=== PATIENT | male | born 1950 | race Caucasian/White ===

== ENCOUNTER 2022-10-16 07:43 | Emergency (ER) | payer MEDICARE, MEDICAID, SELFPAY ==
[2022-10-16] VITALS (12 sets, daily range): BP systolic 205–241; BP diastolic 105–124; PULSE 95–107; RESP 14–22; TEMP 37; O2SAT 97–99; BMI 21.6
--- NOTE | 2022-10-16 08:20 | ED_ITS ---
HPI - General Adult General Chief complaint: Hypertension Stated complaint: SOB; HTN Time Seen by Provider: 10/16/22 08:20 Source: patient Mode of arrival: EMS Limitations: no limitations History of Present Illness HPI narrative: This is a 72-year-old male with history of hypertension and prior polysubstance abuse who has been sober for 20-30 years. Patient was at [facility], patient states today he got short of breath walking up the stairs at the clinic. Patient states that he usually takes a stop care home up the steps but did not he was trying to push himself. He is got very short of breath. He denies any chest pain or pressure, no lightheadedness, no passing out. No nausea no vomiting, no diaphoresis. He is had some constipation recently but having bowel movements. No new swelling in his extremities. His blood pressure is quite high he notes that it was quite elevated for some time. He stopped his lisinopril 2 years ago because he does not like to take medication regularly. He states he checks his blood pressure regularly and 200 systolic or higher is not atypical for him. He does not take any other prescriptions. He is allergic to bees, no known drug allergies. Patient states he is had prior surgical repair for femur fracture and fracture in his arms. Denies any other surgeries. Former smoker, rare alcohol, patient states in the past he has used many different illicit substances but quit about 20 or 30 years ago. Related Data Previous Rx's Medication Instructions Recorded furosemide 40 mg tablet (Lasix) 40 mg PO DAILY #7 tabs 10/16/22 lisinopril 5 mg tablet 5 mg PO DAILY #30 tabs 10/16/22 Review of Systems Review of Systems ROS Unobtainable: All systems reviewed & are unremarkable except as noted in HPI and below Patient History Social History Smoking Status: Former smoker Smoking Status: Former smoker alcohol intake frequency: other Substance Use Type: does not use Exam Narrative Exam Narrative: GEN: well nourished, well appearing male, alert and oriented x 3, patient appears to be in mild distress. HEENT: Atraumatic, pupils are equal round reactive to light, extraocular movements are intact, nares are clear, there is no conjunctival pallor. Throat is clear without any exudates, erythema, tonsillar enlargement or uvular deviation HEART: Regular rate and rhythm without murmur, clicks, rubs. Pulses are equal in upper and lower extremities LUNGS:Lungs clear to auscultation, no wheezes, rales, crackles, chest moves symmetrically, no tachypnea or accessory muscle use, no swelling bilateral lower extremities ABD:bowel sounds normal, soft, non-tender, no guarding, rebound, rigidity, no masses noted, no hepatosplenomegaly :No CVA tenderness MSCL: Non-tender, no muscle atrophy, full range of motion, normal gait NEURO:CN 2-12 intact, sensation normal. SKIN: No rash, erythema or other skin changes Initial Vital Signs Initial Vital Signs: Vital Signs Pulse Rate 105 H 10/16/22 07:48 Respiratory Rate 15 10/16/22 07:48 Pulse Oximetry 98 10/16/22 07:48 Course Orders Ordered: ED Orders 10/16/22 08:12 Complete Blood Count AUTO DIFF Stat Comprehensive Metabolic Panel Stat Lipase Stat NT-proBNP (BNP-Adult 18+) Stat PTT Partial Thromboplastin Vinicius Stat Prothrombin Time INR Stat Troponin & CK Cardiac Panel Stat 10/16/22 08:43 XR chest 1V Stat 10/16/22 08:47 EKG-12 Lead Stat Discontinued Medications Furosemide (Furosemide 40 Mg/4 Ml Vial) 40 mg IV NOW ONE Stop: 10/16/22 09:31 Last Admin: 10/16/22 09:35 Dose: 40 mg Documented By: LEONIE Vital Signs Vital signs: Vital Signs - 8 hr 10/16/22 07:54 10/16/22 07:48 10/16/22 08:00 Temperature 98.6 F Pulse Rate 107 H 105 H Respiratory Rate 20 15 Blood Pressure 241/123 H 208/109 H Pulse Oximetry 97 98 Oxygen Delivery Method Room Air 10/16/22 08:00 10/16/22 08:15 10/16/22 08:15 Temperature Pulse Rate 104 H 103 H Respiratory Rate 14 15 Blood Pressure 205/106 H Pulse Oximetry 99 99 Oxygen Delivery Method 10/16/22 08:30 10/16/22 08:31 10/16/22 08:31 Temperature Pulse Rate 101 H 100 H Respiratory Rate 22 18 Blood Pressure 220/124 H Pulse Oximetry 99 99 Oxygen Delivery Method 10/16/22 08:45 10/16/22 08:45 10/16/22 09:00 Temperature Pulse Rate 98 H Respiratory Rate 17 Blood Pressure 218/105 H 217/109 H Pulse Oximetry 98 Oxygen Delivery Method 10/16/22 09:00 10/16/22 09:16 10/16/22 09:16 Temperature Pulse Rate 95 H 100 H Respiratory Rate 18 17 Blood Pressure 224/120 H Pulse Oximetry 98 99 Oxygen Delivery Method 10/16/22 09:30 10/16/22 09:30 10/16/22 09:45 Temperature Pulse Rate 98 H Respiratory Rate 17 Blood Pressure 224/112 H 231/115 H Pulse Oximetry 98 Oxygen Delivery Method 10/16/22 09:45 10/16/22 10:00 10/16/22 10:00 Temperature Pulse Rate 106 H 97 H Respiratory Rate 17 21 Blood Pressure 224/106 H Pulse Oximetry 98 98 Oxygen Delivery Method Medical Decision Making Lab Data 10/16/22 08:12 10/16/22 08:12 Labs: Lab Results 10/16/22 10/16/22 10/16/22 Range/Units 08:12 08:12 08:12 WBC 10.9 (4.5-11.0) X10^3/uL RBC 5.17 (4.5-5.9) X10^6/uL Hgb 13.6 (13.5-17.5) g/dL Hct 39.7 L (41-53) % MCV 76.8 L (80-100) fL MCH 26.3 (26-34) PG MCHC 34.3 (30-36) % RDW 13.8 (11.6-14.8) % Plt Count 210 (150-400) X10^3/uL Neut % (Auto) 84.3 H (50-75) % Lymph % (Auto) 9.5 L (25-40) % Clinch % (Auto) 5.8 (3-14) % Eos % (Auto) 0.1 L (2-4) % Baso % (Auto) 0.3 (0-2) % Neut # (Auto) 9200 H (8820-7604) /uL Lymph # (Auto) 1000 L (2500-1396) /uL Clinch # (Auto) 600 (0-900) /uL Eos # (Auto) 0 (0-450) /uL Baso # (Auto) 0 (0-100) /uL PT 15.1 H (10.1-12.7) SECONDS INR 1.3 (0.9-1.3) APTT 30 (26-36) SECONDS Sodium 139 (137-145) mmol/L Potassium 4.1 (3.4-5.1) mmol/L Chloride 103 (98-107) mmol/L Carbon Dioxide 28 (22-32) mmol/L BUN 15 (9-20) mg/dL Creatinine 0.63 L (0.66-1.25) mg/dL Estimated GFR > 60 (>60) mL/min BUN/Creatinine Ratio 23.8 H (6-22) Glucose 112 H (80-110) mg/dL Calcium 10.3 H (8.4-10.2) mg/dL Total Bilirubin 0.7 (0.2-1.3) mg/dL AST 58 (17-59) IU/L ALT 28 (<50) IU/L Alkaline Phosphatase 154 H (38-126) U/L Total Creatine Kinase 21 L (55-170) U/L CK-MB (CK-2) TNP CK-MB (CK-2) Rel Index TNP Troponin I 0.016 (0.01-0.034) ng/mL NT-Pro-B Natriuret Pep 1870 H (<125) pg/mL Total Protein 6.9 (6.3-8.2) g/dL Albumin 3.5 (3.5-5.0) g/dL Globulin 3.4 (1.7-4.1) g/dL Albumin/Globulin Ratio 1.0 (1.0-2.8) Lipase 134 (23-300) U/L Imaging Data Chest x-ray: Radiologist's Impression: [address] [address] XRay Report Signed Patient: Alistair Arteaga MR#: [id number] : 1950 Acct:[id number] Age/Sex: 72 / M Date of Service: 10/16/22 Loc: ED Accession Number: [id number] ?? Procedure: XR chest 1V Ordering Provider: Suzanne Sanon D.O. PROCEDURE:? XR CHEST 1V ? INDICATIONS:? shortness of breath ? TECHNIQUE:? One view of the chest was acquired.? ? COMPARISON:? None. ? FINDINGS:? ? Surgical changes and devices:? None.? ? Lungs and pleura:? Lungs are clear.? No pleural effusions or pneumothorax.? ? Mediastinum:? Mediastinal contours appear normal.? Heart size is normal.? ? Bones and chest wall:? No suspicious bony lesions.? Overlying soft tissues appear unremarkable.? ? IMPRESSION:? No acute cardiopulmonary pathology. ? ? Dictated by: Darin Villela M.D. on 10/16/2022 at 8:56 ? ? Approved by: Darin Villela M.D. on 10/16/2022 at 8:56?? ECG Data Attestation: I personally reviewed and interpreted this ECG as follows: Prior ECG tracings: not available for review Interpretation: Sinus rhythm with sinus arrhythmia rate of 98 MN 132 QRS of 90 QTC of 428. No acute ST elevation or depression noted. No priors for comparison. MDM Narrative Medical decision making narrative: This is a 72-year-old male with significant hypertension, patient states this is his baseline he has been off his lisinopril for at least 2 years he states used to take a low-dose and was controlled without medication. Patient has had shortness of breath he describes today quite a bit with exertion upstairs but has had some mild symptoms recently. EKG shows sinus rhythm no acute ST changes he is not had any chest pain with symptoms but considering CHF, ACS, atypical angina, infection as potential causes. CBC, CMP, troponin, BNP shows hematocrit of 39, normal platelets normal white count, coags negative, creatinine is negative with normal electrolytes, glucose 110, calcium 10.3 P ox 154, troponins negative at 0.016 with a BNP of 18 70 and normal LFT. Chest x-ray shows no acute process. Patient and I discussed findings, like to do repeat troponin 2 hours negative patient does not wish to stay in the hospital for stress testing. But he elects not to have the 2nd troponin. We discussed that he could have ACS or be having a heart attack he understands this. We also discussed his blood pressure is quite elevated. Asked to restart his lisinopril he states he used to take 5 mg daily and stopped about 2 years ago. We will send a prescription for this short course of Lasix, patient does state he has a primary care physician that he can follow-up with, Dr. Sweet. Patient states he is feeling improved after Lasix here in the department. Discharge Plan Departure Patient Disposition: Home Clinical Impression: Hypertension, CHF (congestive heart failure) Instructions: DI for Heart Failure, DI for High Blood Pressure Activity Restrictions/Additional Instructions: It is recommended that you stay for additional workup, you have elected to return home and we have not completely ruled out things like heart attacks. Please follow-up with your physician to continue blood pressure medication, check your blood pressure and discussed with them about getting a stress test. Take lisinopril once daily. Take Lasix once daily until gone. Prescription sent to [facility] in [place] Please return for new or worsening chest pain, shortness of breath, lightheadedness or passing out, new swelling of your extremities or other new or concerning changes Prescriptions: New lisinopril 5 mg tablet 5 mg PO DAILY Qty: 30 0RF furosemide [Lasix] 40 mg tablet 40 mg PO DAILY Qty: 7 0RF Referrals: Miscellaneous,Doctor, [Primary Care Provider] - Stand Alone Forms: Patient Portal/API
--- NOTE | 2022-10-16 08:43 | DI.RAD.S_ITS ---
PROCEDURE: XR CHEST 1V INDICATIONS: shortness of breath TECHNIQUE: One view of the chest was acquired. COMPARISON: None. FINDINGS: Surgical changes and devices: None. Lungs and pleura: Lungs are clear. No pleural effusions or pneumothorax. Mediastinum: Mediastinal contours appear normal. Heart size is normal. Bones and chest wall: No suspicious bony lesions. Overlying soft tissues appear unremarkable. IMPRESSION: No acute cardiopulmonary pathology. Dictated by: Darin Villela M.D. on 10/16/2022 at 8:56 Approved by: Darin Villela M.D. on 10/16/2022 at 8:56
[2022-10-16 08:55] LABS: Add Manual Diff / Slide Review NO; Basophils Absolute Auto 0 /uL (0-100); Basophils Percent Auto 0.3 % (0-2); Eosinophils Absolute Auto 0 /uL (0-450); Eosinophils Percent Auto 0.1 % (2-4); Hematocrit 39.7 % (41-53); Hemoglobin 13.6 g/dL (13.5-17.5); INR 1.3 (0.9-1.3); Lymphocytes Absolute Auto 1000 /uL (1100-4500); Lymphocytes Percent Auto 9.5 % (25-40); Mean Corpuscular HGB Conc 34.3 % (30-36); Mean Corpuscular Hemoglobin 26.3 PG (26-34); Mean Corpuscular Volume 76.8 fL (80-100); Monocytes Absolute Auto 600 /uL (0-900); Monocytes Percent Auto 5.8 % (3-14); Neutrophils Absolute Auto 9200 /uL (1500-7000); Neutrophils Percent Auto 84.3 % (50-75); Platelet Count 210 X10^3/uL (150-400); Prothrombin Time 15.1 SECONDS (10.1-12.7); Red Blood Cell Count 5.17 X10^6/uL (4.5-5.9); Red Cell Distribution Width 13.8 % (11.6-14.8); White Blood Cell Count 10.9 X10^3/uL (4.5-11.0)
[2022-10-16 08:58] LABS: PTT Partial Thromboplastin Tim 30 SECONDS (26-36)
[2022-10-16 09:00] LABS: Alanine Aminotransferase 28 IU/L (<50); Albumin 3.5 g/dL (3.5-5.0); Alkaline Phosphatase 154 U/L (38-126); Aspartate Aminotransferase 58 IU/L (17-59); BUN Creatinine Ratio 23.8 (6-22); Bilirubin Total 0.7 mg/dL (0.2-1.3); Blood Urea Nitrogen 15 mg/dL (9-20); Calcium 10.3 mg/dL (8.4-10.2); Carbon Dioxide 28 mmol/L (22-32); Chloride 103 mmol/L (98-107); Creatine Kinase 21 U/L (55-170); Estimated Glomerular Filt Rate > 60 mL/min (>60); Globulin 3.4 g/dL (1.7-4.1); Glucose 112 mg/dL (80-110); HEMOLYSIS < 15 (0-50); Lipase 134 U/L (23-300); Potassium 4.1 mmol/L (3.4-5.1); Sodium 139 mmol/L (137-145); Total Protein 6.9 g/dL (6.3-8.2)
[2022-10-16 09:11] LABS: NT-proBNP (BNP-Adult 18+) 1870 pg/mL (<125); Troponin I 0.016 ng/mL (0.01-0.034)
[2022-10-16] MEDS: FUROSEMIDE 40 MG/4 ML VIAL IV (09:35)
== END 2022-10-16 10:11 | disposition home or self-care (01) ==
PROVIDERS: Emergency Provider Emergency Medicine
DX: I10 Essential (primary) hypertension (principal); I50.9 Heart failure, unspecified; R06.02 Shortness of breath
CPT/HCPCS: 36415; 71045; 80053; 82550; 83690; 83880; 84484; 85025; 85610; 85730; 93005; 96374; 99284; J1940

== ENCOUNTER 2022-11-11 11:29 | Emergency (ER) | payer MEDICARE, MEDICAID, SELFPAY ==
[2022-11-11] VITALS (10 sets, daily range): BP systolic 141–175; BP diastolic 78–87; PULSE 98–109; RESP 11–26; TEMP 36.7; O2SAT 92–99; BMI 20.3
--- NOTE | 2022-11-11 12:16 | DI.RAD.S_ITS ---
PROCEDURE: XR CHEST 1V INDICATIONS: recheck, chf in October TECHNIQUE: One view of the chest was acquired. COMPARISON: [facility], CR, XR CHEST 1V, 10/16/2022, 8:44. FINDINGS: Surgical changes and devices: None. Lungs and pleura: Low lung volumes. There are horizontal bibasilar opacities, more prominent compared to the prior study, probably accentuated by low lung volumes. There is mid lung interstitial thickening bilaterally. No pneumothorax. Pleural effusions cannot be excluded given low lung volumes. Mediastinum: No acute central venous congestion. Stable mediastinal contour. The heart is partially imaged. Bones and chest wall: No suspicious bony lesions. Overlying soft tissues appear unremarkable. IMPRESSION: 1. Mid and lower lung bilateral interstitial thickening and increased bibasilar opacities, atelectasis or edema. Second image with improved inflation and lateral view may be useful to exclude true infiltrates. Dictated by: Angella Coello M.D. on 11/11/2022 at 12:44 Approved by: Angella Coello M.D. on 11/11/2022 at 12:45
[2022-11-11 12:50] LABS: Add Manual Diff / Slide Review NO; Basophils Absolute Auto 100 /uL (0-100); Basophils Percent Auto 0.5 % (0-2); Eosinophils Absolute Auto 0 /uL (0-450); Eosinophils Percent Auto 0.1 % (2-4); Hemoglobin 13.2 g/dL (13.5-17.5); Lymphocytes Absolute Auto 1300 /uL (1100-4500); Lymphocytes Percent Auto 9.4 % (25-40); Mean Corpuscular HGB Conc 33.8 % (30-36); Mean Corpuscular Hemoglobin 25.9 PG (26-34); Mean Corpuscular Volume 76.6 fL (80-100); Monocytes Absolute Auto 800 /uL (0-900); Monocytes Percent Auto 5.8 % (3-14); Neutrophils Absolute Auto 12000 /uL (1500-7000); Neutrophils Percent Auto 84.2 % (50-75); Platelet Count 233 X10^3/uL (150-400); Red Blood Cell Count 5.09 X10^6/uL (4.5-5.9); Red Cell Distribution Width 15.2 % (11.6-14.8); White Blood Cell Count 14.2 X10^3/uL (4.5-11.0)
[2022-11-11 13:03] LABS: Alanine Aminotransferase 48 IU/L (<50); Albumin 3.3 g/dL (3.5-5.0); Alkaline Phosphatase 148 U/L (38-126); Aspartate Aminotransferase 73 IU/L (17-59); BUN Creatinine Ratio 23.8 (6-22); Bilirubin Total 0.9 mg/dL (0.2-1.3); Blood Urea Nitrogen 30 mg/dL (9-20); Calcium 10.4 mg/dL (8.4-10.2); Carbon Dioxide 28 mmol/L (22-32); Chloride 98 mmol/L (98-107); Creatine Kinase 24 U/L (55-170); Estimated Glomerular Filt Rate > 60 mL/min (>60); Globulin 3.3 g/dL (1.7-4.1); Glucose 132 mg/dL (80-110); HEMOLYSIS < 15 (0-50); Potassium 3.9 mmol/L (3.4-5.1); Sodium 135 mmol/L (137-145); Total Protein 6.6 g/dL (6.3-8.2)
[2022-11-11 13:14] LABS: NT-proBNP (BNP-Adult 18+) 3420 pg/mL (<125); Troponin I 0.047 ng/mL (0.01-0.034)
--- NOTE | 2022-11-11 14:10 | DI.RAD.S_ITS ---
PROCEDURE: XR CHEST 2V INDICATIONS: repeat for better view r/u edema vs. infection/infiltrate TECHNIQUE: 2 views of the chest were acquired. COMPARISON: [facility], CR, XR CHEST 2 VIEWS, 02/20/2022, 8:59. [facility], CR, XR CHEST 1V, 11/11/2022, 12:41. FINDINGS: Surgical changes and devices: None. Lungs and pleura: There are horizontal bibasilar opacity. Lateral view demonstrates small probably bilateral pleural effusions. There is minor platelike atelectasis or scar medially in the right lung base. Upper lungs are normally aerated. Mediastinum: Heart size is normal. No central vascular congestion. Normal aortic contour. Bones and chest wall: No suspicious bony abnormalities. Soft tissues appear unremarkable. IMPRESSION: 1. Bibasilar opacities and pleural effusions, new since 02/20/22 and probably infectious or inflammatory. Dictated by: Angella Coello M.D. on 11/11/2022 at 15:08 Approved by: Angella Coello M.D. on 11/11/2022 at 15:10
--- NOTE | 2022-11-11 14:17 | ED.RECABL ---
HPI - Recheck/Abnormal Lab/Rx General Chief Complaint: Recheck/Abnormal Lab/Rx Stated Complaint: follow up from 3weeks ago with [facility] Time Seen by Provider: 11/11/22 12:16 Mode of arrival: Wheelchair History of Present Illness HPI narrative: This is a 72-year-old male with history of hypertension, prior polysubstance abuse on methadone daily who represents with complaint of intermittent shortness of breath. Patient states and I saw him a month ago for some increasing exertional dyspnea. Patient states he did set up a follow up primary care, he is supposed to have some testing in about a month. He states he is still on his lisinopril they did decrease the Lasix that was prescribed but is still taking a lower dose daily. Patient states he is had occasional shortness of breath with exertion, he states it is not as bad as it was but happens occasionally particularly in the morning. He denies any chest pain or pressure. No syncope. Also described lot of constipation to the lateral laxative medications which improved. He denies any fevers, no cold cough or congestion. No nausea or vomiting. He does not appreciate increasing swelling of his extremities. Patient had no longstanding history of hypertension which had not been well treated. Patient states he came for rechecked today. States he is allergic to bees no known drug allergies. Had prior surgical care for femur fracture and fracture in his arms. Former smoker, rare alcohol, no recreational drug use for the past 20-30 years. Follows through did while at clinic for daily methadone. Patient and I had discussed hospitalization for cardiac opposite stress testing but he has a 15-year-old daughter and has not been able to spend the night secondary to needing to make arrangements to take care of his daughter. Related Data Previous Rx's Medication Instructions Recorded furosemide 40 mg tablet (Lasix) 40 mg PO DAILY #7 tabs 10/16/22 lisinopril 5 mg tablet 5 mg PO DAILY #30 tabs 10/16/22 metoprolol succinate 25 mg capsule 25 mg PO DAILY #30 ea 11/11/22 sprinkle, ext. release 24 hr Allergies Allergy/AdvReac Type Severity Reaction Status Date / Time No Known Drug Allergies Allergy Verified 11/11/22 11:44 Review of Systems Review of Systems ROS Unobtainable: All systems reviewed & are unremarkable except as noted in HPI and below Patient History Social History Smoking Status: Former smoker Smoking Status: Former smoker alcohol intake frequency: other Substance Use Type: does not use Exam Narrative Exam Narrative: GENERAL: Alert and oriented x three, well-appearing male in mild distress. HEENT: Head normocephalic, atraumatic, EOMI, pupils reactive, face symmetric, moist mucous membranes NECK: Supple, full range of motion CARDIOVASCULAR: Regular rate and rhythm without murmurs, rubs or gallops. Mild JVD. Swelling bilateral lower extremities. RESPIRATORY: Breath sounds equal bilaterally, no wheezes rales or rhonchi. No tachypnea accessory muscle use. Speaks in full sentences. ABDOMEN: Soft, nontender. Normoactive bowel sounds all 4 quadrants. No guarding or rebound, rigidity, no mass : No CVA tenderness EXTREMITIES: Normal range of motion, no clubbing or edema. Neurovascularly intact NEUROLOGICAL: Cranial nerves II through XII grossly intact. Moving all extremities SKIN: Warm, dry, no petechiae, no rashes or lesions. Initial Vital Signs Initial Vital Signs: Vital Signs Temperature 98.0 F 11/11/22 11:44 Pulse Rate 109 H 11/11/22 11:44 Respiratory Rate 16 11/11/22 11:44 Blood Pressure 141/78 H 11/11/22 11:44 Pulse Oximetry 98 11/11/22 11:44 Oxygen Delivery Method Room Air 11/11/22 11:44 Course Orders Ordered: ED Orders 11/11/22 12:16 Chest [XR chest 1V] Stat 11/11/22 12:22 CBC Auto Diff [Complete Blood Count AUTO DIFF] Stat Comprehensive Metabolic Panel Stat NT-proBNP (BNP-Adult 18+) Stat Troponin & CK Cardiac Panel Stat 11/11/22 12:34 EKG-12 Lead Stat 11/11/22 14:10 Chest [XR chest 2V] Stat 11/11/22 14:35 Trop I [Troponin I] Stat 11/11/22 14:59 EKG-12 Lead Stat Vital Signs Vital signs: Vital Signs - 8 hr 11/11/22 11:44 11/11/22 13:55 11/11/22 13:55 Temperature 98.0 F Pulse Rate 109 H 102 H Respiratory Rate 16 14 Blood Pressure 141/78 H 167/87 H Pulse Oximetry 98 99 Oxygen Delivery Method Room Air 11/11/22 14:00 11/11/22 14:00 11/11/22 14:30 Temperature Pulse Rate 101 H 102 H Respiratory Rate 14 16 Blood Pressure 158/79 H Pulse Oximetry 92 Oxygen Delivery Method 11/11/22 15:00 11/11/22 15:29 11/11/22 15:29 Temperature Pulse Rate 101 H 98 H Respiratory Rate 26 H 17 Blood Pressure 147/81 H Pulse Oximetry Oxygen Delivery Method 11/11/22 15:30 11/11/22 15:30 11/11/22 16:00 Temperature Pulse Rate 99 H Respiratory Rate Blood Pressure 159/83 H 165/81 H Pulse Oximetry Oxygen Delivery Method 11/11/22 16:00 11/11/22 16:30 11/11/22 16:30 Temperature Pulse Rate 101 H 101 H Respiratory Rate 11 L 14 Blood Pressure 175/83 H Pulse Oximetry Oxygen Delivery Method 11/11/22 16:45 Temperature Pulse Rate 104 H Respiratory Rate 21 Blood Pressure Pulse Oximetry Oxygen Delivery Method MDM - Recheck/Abnormal Lab/Rx Lab Data 11/11/22 12:22 11/11/22 12:22 Labs: Lab Results 11/11/22 11/11/22 11/11/22 Range/Units 12:22 12:22 14:35 WBC 14.2 H (4.5-11.0) X10^3/uL RBC 5.09 (4.5-5.9) X10^6/uL Hgb 13.2 L (13.5-17.5) g/dL Hct 39.0 L (41-53) % MCV 76.6 L (80-100) fL MCH 25.9 L (26-34) PG MCHC 33.8 (30-36) % RDW 15.2 H (11.6-14.8) % Plt Count 233 (150-400) X10^3/uL Neut % (Auto) 84.2 H (50-75) % Lymph % (Auto) 9.4 L (25-40) % Dauphin % (Auto) 5.8 (3-14) % Eos % (Auto) 0.1 L (2-4) % Baso % (Auto) 0.5 (0-2) % Neut # (Auto) 25836 H (3170-0982) /uL Lymph # (Auto) 1300 (9412-8707) /uL [place]hin # (Auto) 800 (0-900) /uL Eos # (Auto) 0 (0-450) /uL Baso # (Auto) 100 (0-100) /uL Sodium 135 L (137-145) mmol/L Potassium 3.9 (3.4-5.1) mmol/L Chloride 98 (98-107) mmol/L Carbon Dioxide 28 (22-32) mmol/L BUN 30 H (9-20) mg/dL Creatinine 1.26 H (0.66-1.25) mg/dL Estimated GFR > 60 (>60) mL/min BUN/Creatinine Ratio 23.8 H (6-22) Glucose 132 H (80-110) mg/dL Calcium 10.4 H (8.4-10.2) mg/dL Total Bilirubin 0.9 (0.2-1.3) mg/dL AST 73 H (17-59) IU/L ALT 48 (<50) IU/L Alkaline Phosphatase 148 H (38-126) U/L Total Creatine Kinase 24 L (55-170) U/L Troponin I 0.047 H 0.042 H (0.01-0.034) ng/mL NT-Pro-B Natriuret Pep 3420 H (<125) pg/mL Total Protein 6.6 (6.3-8.2) g/dL Albumin 3.3 L (3.5-5.0) g/dL Globulin 3.3 (1.7-4.1) g/dL Albumin/Globulin Ratio 1.0 (1.0-2.8) Imaging Data Chest x-ray: Radiologist's Impression: Alistair Arteaga??72??M??1950 ? Allergy/Adv: No Known Drug Allergies Close Chest X-Ray (Signed) Angella Coello - 11/11/22 Chest X-Ray (Signed) Darin Villela - 10/16/22 Launch?[address] [address] XRay Report Signed Patient: Alistair Arteaga MR#: [id number] : 1950 Acct:[id number] Age/Sex: 72 / M Date of Service: 11/11/22 Loc: ED Accession Number: [id number] ?? Procedure: XR chest 1V Ordering Provider: Suzanne Sanon D.O. PROCEDURE:? XR CHEST 1V ? INDICATIONS:? recheck, chf in October ? TECHNIQUE:? One view of the chest was acquired.? ? COMPARISON:? [facility], CR, XR CHEST 1V, 10/16/2022, 8:44. ? FINDINGS:? ? Surgical changes and devices:? None.? ? Lungs and pleura:? Low lung volumes.? There are horizontal bibasilar opacities, more prominent compared to the prior study, probably accentuated by low lung volumes.? There is mid lung interstitial thickening bilaterally.? No pneumothorax.? Pleural effusions cannot be excluded given low lung volumes. ? Mediastinum:? No acute central venous congestion.? Stable mediastinal contour.? The heart is partially imaged. ? Bones and chest wall:? No suspicious bony lesions.? Overlying soft tissues appear unremarkable.? ? IMPRESSION:? ? 1. Mid and lower lung bilateral interstitial thickening and increased bibasilar opacities, atelectasis or edema.? Second image with improved inflation and lateral view may be useful to exclude true infiltrates.? ? ? Dictated by: Angella Coello M.D. on 11/11/2022 at 12:44 ? ? Approved by: Angella Coello M.D. on 11/11/2022 at 12:45?? 2vchest: Radiologist's Impression: Alistair Arteaga??72??M??1950 ? Allergy/Adv: No Known Drug Allergies Close Chest X-Ray (Signed) Angella Coello - 11/11/22 Chest X-Ray (Signed) Angella Coello - 11/11/22 Chest X-Ray (Signed) Darin Villela - 10/16/22 Launch?Image [address] [address] XRay Report Signed Patient: Alistair Arteaga MR#: [id number] : 1950 Acct:[id number] Age/Sex: 72 / M Date of Service: 11/11/22 Loc: ED Accession Number: [id number] ?? Procedure: XR chest 2V Ordering Provider: Suzanne Sanon D.O. PROCEDURE:? XR CHEST 2V ? INDICATIONS:? repeat for better view r/u edema vs. infection/infiltrate ? TECHNIQUE:? 2 views of the chest were acquired.? ? COMPARISON:? [facility], CR, XR CHEST 2 VIEWS, 02/20/2022, 8:59.? [facility], CR, XR CHEST 1V, 11/11/2022, 12:41. ? FINDINGS:? ? Surgical changes and devices:? None.? ? Lungs and pleura:? There are horizontal bibasilar opacity.? Lateral view demonstrates small probably bilateral pleural effusions.? There is minor platelike atelectasis or scar medially in the right lung base.? Upper lungs are normally aerated. ? Mediastinum:? Heart size is normal.? No central vascular congestion.? Normal aortic contour. ? Bones and chest wall:? No suspicious bony abnormalities.? Soft tissues appear unremarkable.? ? IMPRESSION:? ? 1. Bibasilar opacities and pleural effusions, new since 02/20/22 and probably infectious or inflammatory.? ? ? Dictated by: Angella Coello M.D. on 11/11/2022 at 15:08 ? ? Approved by: Angella Coello M.D. on 11/11/2022 at 15:10?? ECG Data Attestation: I personally reviewed and interpreted this ECG as follows: Interpretation: Sinus tachycardia rate of 112 AK 158 QRS is 96 [address] No acute [address] elevation, patient has some [id number] depression that is not present throughout in lateral leads. No elevation. Patient has comparison from 10/16/2022 which otherwise appears similar EKG 2. Sinus tachycardia rate of 101 AK 161 QRS of 98 QTC 427. Nonspecific change. No other acute changes appreciated. No new elevation depression noted. MDM Narrative Medical decision making narrative: This is a very pleasant 72-year-old male who seen once before by myself with history of longstanding hypertension that was untreated for some time patient has restarted blood pressure medication his blood pressure is elevated but improved today compared to priors. He has sinus rhythm no acute ST changes but is noted to have indeterminate troponin which is elevated from last visit repeat is 0.042 slightly down from initial, BNP is elevated at 3400 today. Creatinine is also bumped up at 1.26 with a BUN of 30. Electrolytes otherwise appropriate, coags negative, white count is 14. Patient was noted to have a BNP of 18 70 so has had some increased since the and had a negative troponin on as well. Discussed with patient I would like him to stay for cardiac hives, stress testing diuresis and close watching of his renal function. Patient unfortunately states he is not able to secondary to needing to care for his daughter, he has been in contact with Dr. Dylan Mims and has been set up for some testing sounds like stress testing in a month. Discussed with patient will reach out to his primary care to see if we can get additional workup and close follow-up as I feel he is high-risk for cardiac event. Discussed this with the patient he does expresses understanding but has obligations that require him to return home. Will start patient on a daily beta-luisito. Plan for patient continue his Lasix, lisinopril I would not stop this yet. I do have a call out to his primary care Dr. Dylan Mims, no callback yet. Discussed with patient and he will reach out to try to more his workup to more timely manner. Patient was encouraged to return at any time as we discussed I am quite concerned that he is going to develop heart attack or go and severe heart failure. Patient expresses his understanding states he will go ahead start medications. 11/12/22 Attempted to reach patient's primary care again, Dr. Dylan Mims. Multiple attempts, was able to speak with front office but was never able to speak with physician or get message through. Discharge Plan Departure Patient Disposition: Home Clinical Impression: CHF (congestive heart failure), Acute kidney injury Instructions: DI for Heart Failure Activity Restrictions/Additional Instructions: Please follow-up with the next 1-2 days with your physician, you very much need stress testing for your heart, an ECHO or ultrasound of your heart and recheck of your renal function. I would like you to stay for stress testing here in the hospital I am concerned that you may have a heart attack, I understand that you need to take care of your daughter please return at any time if you are feeling worse. You do appear to be in heart failure today. You also have an elevation of your creatinine or kidney function. I am concerned that you may have a heart attack or go into severe heart failure at any time. Continue your current medications, please take an aspirin 81 mg daily. Start metoprolol 1 tablet daily. Prescription sent to [facility] in [place] Please return for new or worsening chest pain, shortness of breath, lightheadedness or passing out, increasing swelling in your extremities or any other new or concerning changes. Prescriptions: New metoprolol succinate 25 mg capsule,sprinkle,ER 24hr 25 mg PO DAILY Qty: 30 0RF No Action lisinopril 5 mg tablet 5 mg PO DAILY Qty: 30 0RF furosemide [Lasix] 40 mg tablet 40 mg PO DAILY Qty: 7 0RF Referrals: Dylan Mims MD [Primary Care Provider] - Stand Alone Forms: Patient Portal/API
[2022-11-11 16:02] LABS: Troponin I 0.042 ng/mL (0.01-0.034)
--- NOTE | 2022-11-14 13:11 | CM.SWNOTE ---
SUPERVISOR ENROBING ED f/u Note SUPERVISOR ENROBING receives verbal ED SUPERVISOR ENROBING consult for patient that need urgent PCP f/u for needed stress test and ECHO. SUPERVISOR ENROBING calls patient and patient endorses his PCP is in [place] and he has had a difficult time getting ahold of PCP. SUPERVISOR ENROBING offers to set up PCP with provider, patient indicates agreement. SUPERVISOR ENROBING calls [address] clinic and speaks with cap lining machine operator. SUPERVISOR ENROBING schedules patient with Dr. Lane for 11/20 @ 10:30 AM. It is reported that patient will need another f/u appt to schedule stress test and ECHO. SUPERVISOR ENROBING calls patient and informs patient of appt with 10:00 AM check in time, patient indicates agreement and understanding. Plan: patient to f/u with Dr. Lane for needed outpatient stress test and ECHO. REBEKAH PhelpsSW
== END 2022-11-11 17:02 | disposition home or self-care (01) ==
PROVIDERS: Emergency Provider Emergency Medicine; PCP Internal Medicine
DX: I50.9 Heart failure, unspecified (principal); N17.9 Acute kidney failure, unspecified; R00.0 Tachycardia, unspecified
CPT/HCPCS: 36415; 71045; 71046; 80053; 82550; 83880; 84484; 85025; 93005; 99284

== ENCOUNTER 2022-11-25 15:52 | Inpatient (IN) | payer MEDICARE, MEDICAID, SELFPAY ==
[2022-11-25] VITALS (8 sets, daily range): BP systolic 110–159; BP diastolic 63–87; PULSE 85–99; RESP 13–29; TEMP 36.4; O2SAT 94–99; BMI 20.3
--- NOTE | 2022-11-25 16:09 | DI.RAD.S_ITS ---
PROCEDURE: XR CHEST 1V INDICATIONS: Shortness of breath TECHNIQUE: One view of the chest was acquired. COMPARISON: [facility], CR, XR CHEST 2V, 11/11/2022, 14:09. [facility], CR, XR CHEST 1V, 11/11/2022, 12:41. [facility], CR, XR CHEST 1V, 10/16/2022, 8:44. FINDINGS: Surgical changes and devices: None. Lungs and pleura: There is mild blunting of the left costophrenic angle. A small pleural effusion is suspected. No pneumothorax or infiltrates are seen. Mediastinum: Mediastinal contours appear normal. Heart size is normal. Bones and chest wall: No suspicious bony lesions. Age-appropriate bony degenerative changes are seen. Overlying soft tissues appear unremarkable. IMPRESSION: Likely small left-sided pleural effusion. Dictated by: Tonny Orosco M.D. on 11/25/2022 at 16:25 Approved by: Tonny Orosco M.D. on 11/25/2022 at 16:26
[2022-11-25 17:05] LABS: Add Manual Diff / Slide Review NO; Basophils Absolute Auto 0 /uL (0-100); Basophils Percent Auto 0.3 % (0-2); Eosinophils Absolute Auto 0 /uL (0-450); Hematocrit 44.7 % (41-53); Hemoglobin 14.8 g/dL (13.5-17.5); Lymphocytes Absolute Auto 1500 /uL (1100-4500); Mean Corpuscular HGB Conc 33.1 % (30-36); Mean Corpuscular Hemoglobin 25.8 PG (26-34); Mean Corpuscular Volume 78.1 fL (80-100); Monocytes Absolute Auto 700 /uL (0-900); Monocytes Percent Auto 4.5 % (3-14); Neutrophils Absolute Auto 13100 /uL (1500-7000); Neutrophils Percent Auto 85.2 % (50-75); Platelet Count 223 X10^3/uL (150-400); Red Blood Cell Count 5.73 X10^6/uL (4.5-5.9); Red Cell Distribution Width 16.8 % (11.6-14.8); White Blood Cell Count 15.4 X10^3/uL (4.5-11.0)
[2022-11-25 17:09] LABS: INR 1.4 (0.9-1.3); Prothrombin Time 15.7 SECONDS (10.1-12.7)
[2022-11-25 17:11] LABS: Alanine Aminotransferase 61 IU/L (<50); Albumin 3.8 g/dL (3.5-5.0); Alkaline Phosphatase 191 U/L (38-126); Aspartate Aminotransferase 89 IU/L (17-59); Bilirubin Total 1.3 mg/dL (0.2-1.3); Blood Urea Nitrogen 58 mg/dL (9-20); Carbon Dioxide 26 mmol/L (22-32); Chloride 98 mmol/L (98-107); Estimated Glomerular Filt Rate 31 mL/min (>60); Globulin 3.7 g/dL (1.7-4.1); Glucose 100 mg/dL (80-110); HEMOLYSIS < 15 (0-50); Lactate (Lactic Acid) 2.3 mmol/L (0.7-2.1); Potassium 4.1 mmol/L (3.4-5.1); Sodium 136 mmol/L (137-145); Total Protein 7.5 g/dL (6.3-8.2)
[2022-11-25 17:23] LABS: NT-proBNP (BNP-Adult 18+) 3770 pg/mL (<125); Troponin I 0.111 ng/mL (0.01-0.034)
[2022-11-25 18:59] LABS: Reflexed Lactate in 2 Hours Y
--- NOTE | 2022-11-25 19:30 | PC.NURSE ---
increasing SOB, pt sitting up in wc at this time with no distress noted
[2022-11-25 19:54] LABS: Lactate 2HR (Lactic Acid Rflx) 2.4 mmol/L (0.7-2.1)
--- NOTE | 2022-11-25 20:43 | PC.NURSE ---
pt states he presented tonight because he just has not felt right, he has had increased fatigue lately he has also increased his methadone dose from 20 mg to 25 mg pt states he has been taking his medications as ordered
--- NOTE | 2022-11-25 20:53 | ED_ITS ---
HPI - SOB/Dyspnea General Chief Complaint: Shortness of Breath/Dyspnea Stated Complaint: SOB Time Seen by Provider: 11/25/22 18:04 Source: patient Mode of arrival: Wheelchair Limitations: no limitations History of Present Illness HPI Narrative: 72-year-old male former smoker with history of hypertension presents with his daughter and a chief complaint of increasing fatigue and shortness of breath. He has been having trouble for the past few weeks and it seems to have started when he was walking upstairs and became significantly short of breath. He was seen and evaluated here a few weeks ago and found to have an acute kidney injury and CHF and was discharged with encouragement to follow-up. He had contact with his primary care provider who has ordered an outpatient stress test and echocardiogram which is scheduled for 2 days now. He denies dizziness or lightheadedness. He is had poor appetite and states that now he is so short of breath he can not make it more than 4-5 feet without having to stop. He denies any weight loss or weight gain. He denies abdominal pain, diarrhea or constipation Related Data Previous Rx's Medication Instructions Recorded furosemide 40 mg tablet (Lasix) 40 mg PO DAILY #7 tabs 10/16/22 lisinopril 5 mg tablet 5 mg PO DAILY #30 tabs 10/16/22 metoprolol succinate 25 mg capsule 25 mg PO DAILY #30 ea 11/11/22 sprinkle, ext. release 24 hr Allergies Allergy/AdvReac Type Severity Reaction Status Date / Time bee venom protein (honey bee) Allergy Swelling Verified 11/25/22 15:58 of Lip/Tongue/Throat Review of Systems Review of Systems Narrative: GENERAL: Denies chills, fatigue, malaise, fever, sweats. HEENT: Denies sinus pain, ear pain, sore throat, difficulty swallowing, dizziness. RESPIRATORY: Denies dyspnea, cough, wheezing, hemoptysis, sputum. CARDIOVASCULAR: Denies chest pain, palpitations, orthopnea, edema, GASTROINTESTINAL: Denies nausea, vomiting, abdominal pain, diarrhea, constipation, melena. : Denies dysuria, frequency, incontinence, hematuria, urinary retention. MUSCULOSKELETAL: denies weakness, joint pain, or bony pain SKIN: Denies rash, skin lesions, or other NEUROLOGIC: Denies weakness, headache, numbness, change in speech, confusion, seizures, incoordination. PSYCHIATRIC: No concerning psychosocial issues. 12 point review of systems is negative except for those stated above Patient History Social History Smoking Status: Former smoker Smoking Status: Former smoker alcohol intake frequency: other Substance Use Type: does not use Exam Narrative Exam Narrative: GENERAL: [72-year-old male] patient appears stated age. Well-developed patient, in mild distress. He appears chronically ill with temporal wasting HEAD: Atraumatic. Normocephalic. EYES: Pupils equal round and reactive. Extraocular motions intact. No scleral icterus. No injection or drainage. ENT: Dry mucous membranes. Nose without bleeding, purulent drainage. Throat without erythema, tonsillar hypertrophy or exudate. Airway patent. NECK: Trachea midline. Non tender CARDIOVASCULAR: Regular rate and rhythm without murmurs, gallops, or rubs. RESPIRATORY: Decreased lung sounds throughout with crackles in bilateral bases, prolonged expiratory phase GASTROINTESTINAL: Abdomen soft, non-tender, nondistended. EXTREMITIES: No edema or joint tenderness. BACK: Nontender without deformity or crepitance. No flank tenderness. NEURO: AOx3. SKIN: No rash or erythema of visible areas Initial Vital Signs Initial Vital Signs: Vital Signs Temperature 97.6 F 11/25/22 15:58 Pulse Rate 99 H 11/25/22 15:58 Respiratory Rate 20 11/25/22 15:58 Blood Pressure 117/65 11/25/22 15:58 Pulse Oximetry 99 11/25/22 15:58 Oxygen Delivery Method Room Air 11/25/22 15:58 Course Orders Ordered: ED Orders 11/25/22 20:40 Trop I [Troponin I] Stat 11/25/22 21:40 D Dimer Stat 11/25/22 22:45 CT abdomen pelvis w con Stat CT angio chest PE protocol Stat 11/25/22 23:48 Creatinine Urine Random Stat Sodium Urine Random Stat 11/26/22 02:20 CMP [Comprehensive Metabolic Panel] Stat Troponin & CK Cardiac Panel Stat Discontinued Medications Sodium Chloride (Normal Saline 0.9%) 1,000 mls @ 1,000 mls/hr IV BOLUS ONE Stop: 11/25/22 22:08 Last Infusion: 11/25/22 22:23 Dose: 0 mls/hr Documented By: Admin: 11/25/22 21:38 Dose: 1,000 mls/hr Documented By: SOWMYA Sodium Chloride (Normal Saline 0.9%) 1,000 mls @ 1,000 mls/hr IV BOLUS ONE Stop: 11/26/22 02:13 Last Admin: 11/26/22 01:30 Dose: 1,000 mls/hr Documented By: SOWMYA Ceftriaxone Sodium 1,000 mg/ (Sodium Chloride) 100 mls @ 200 mls/hr IV NOW ONE Stop: 11/26/22 04:02 Vital Signs Vital signs: Vital Signs - 8 hr 11/25/22 20:47 11/25/22 21:00 11/25/22 21:30 Pulse Rate 91 H Respiratory Rate 29 H Blood Pressure 155/87 H 138/73 Pulse Oximetry 94 11/25/22 21:30 11/25/22 22:00 11/25/22 22:00 Pulse Rate 87 87 Respiratory Rate 20 17 Blood Pressure 159/71 H Pulse Oximetry 95 96 11/25/22 22:30 11/25/22 22:30 11/25/22 23:00 Pulse Rate 86 Respiratory Rate 13 Blood Pressure 132/63 136/69 Pulse Oximetry 97 11/25/22 23:00 11/26/22 00:00 11/26/22 00:30 Pulse Rate 85 87 85 Respiratory Rate 18 18 14 Blood Pressure Pulse Oximetry 95 90 L 95 MDM - SOB/Dyspnea Lab Data 11/25/22 16:45 11/26/22 02:20 Labs: Lab Results 11/25/22 11/25/22 11/25/22 Range/Units 16:45 16:45 16:45 WBC 15.4 H (4.5-11.0) X10^3/uL RBC 5.73 (4.5-5.9) X10^6/uL Hgb 14.8 (13.5-17.5) g/dL Hct 44.7 (41-53) % MCV 78.1 L (80-100) fL MCH 25.8 L (26-34) PG MCHC 33.1 (30-36) % RDW 16.8 H (11.6-14.8) % Plt Count 223 (150-400) X10^3/uL Neut % (Auto) 85.2 H (50-75) % Lymph % (Auto) 10.0 L (25-40) % [place] % (Auto) 4.5 (3-14) % Eos % (Auto) 0.0 L (2-4) % Baso % (Auto) 0.3 (0-2) % Neut # (Auto) 06566 H (7187-2035) /uL Lymph # (Auto) 1500 (9902-7284) /uL [place] # (Auto) 700 (0-900) /uL Eos # (Auto) 0 (0-450) /uL Baso # (Auto) 0 (0-100) /uL PT 15.7 H (10.1-12.7) SECONDS INR 1.4 H (0.9-1.3) D-Dimer (<500) ng/ml Sodium 136 L (137-145) mmol/L Potassium 4.1 (3.4-5.1) mmol/L Chloride 98 (98-107) mmol/L Carbon Dioxide 26 (22-32) mmol/L BUN 58 H (9-20) mg/dL Creatinine 2.23 H (0.66-1.25) mg/dL Estimated GFR 31 L (>60) mL/min BUN/Creatinine Ratio 26.0 H (6-22) Glucose 100 (80-110) mg/dL Lactate (0.7-2.1) mmol/L Calcium 11.0 H (8.4-10.2) mg/dL Total Bilirubin 1.3 (0.2-1.3) mg/dL AST 89 H (17-59) IU/L ALT 61 H (<50) IU/L Alkaline Phosphatase 191 H (38-126) U/L Total Creatine Kinase (55-170) U/L Troponin I 0.111 H (0.01-0.034) ng/mL NT-Pro-B Natriuret Pep 3770 H (<125) pg/mL Total Protein 7.5 (6.3-8.2) g/dL Albumin 3.8 (3.5-5.0) g/dL Globulin 3.7 (1.7-4.1) g/dL Albumin/Globulin Ratio 1.0 (1.0-2.8) Ur Random Sodium (30-90) mmol/L Urine Creatinine mg/dL 11/25/22 11/25/22 11/25/22 Range/Units 16:45 19:24 20:40 WBC (4.5-11.0) X10^3/uL RBC (4.5-5.9) X10^6/uL Hgb (13.5-17.5) g/dL Hct (41-53) % MCV (80-100) fL MCH (26-34) PG MCHC (30-36) % RDW (11.6-14.8) % Plt Count (150-400) X10^3/uL Neut % (Auto) (50-75) % Lymph % (Auto) (25-40) % [place] % (Auto) (3-14) % Eos % (Auto) (2-4) % Baso % (Auto) (0-2) % Neut # (Auto) (9825-6361) /uL Lymph # (Auto) (1142-6092) /uL [place] # (Auto) (0-900) /uL Eos # (Auto) (0-450) /uL Baso # (Auto) (0-100) /uL PT (10.1-12.7) SECONDS INR (0.9-1.3) D-Dimer (<500) ng/ml Sodium (137-145) mmol/L Potassium (3.4-5.1) mmol/L Chloride (98-107) mmol/L Carbon Dioxide (22-32) mmol/L BUN (9-20) mg/dL Creatinine (0.66-1.25) mg/dL Estimated GFR (>60) mL/min BUN/Creatinine Ratio (6-22) Glucose (80-110) mg/dL Lactate 2.3 H 2.4 H (0.7-2.1) mmol/L Calcium (8.4-10.2) mg/dL Total Bilirubin (0.2-1.3) mg/dL AST (17-59) IU/L ALT (<50) IU/L Alkaline Phosphatase (38-126) U/L Total Creatine Kinase (55-170) U/L Troponin I 0.114 H (0.01-0.034) ng/mL NT-Pro-B Natriuret Pep (<125) pg/mL Total Protein (6.3-8.2) g/dL Albumin (3.5-5.0) g/dL Globulin (1.7-4.1) g/dL Albumin/Globulin Ratio (1.0-2.8) Ur Random Sodium (30-90) mmol/L Urine Creatinine mg/dL 11/25/22 11/25/22 11/26/22 Range/Units 21:40 23:48 02:20 WBC (4.5-11.0) X10^3/uL RBC (4.5-5.9) X10^6/uL Hgb (13.5-17.5) g/dL Hct (41-53) % MCV (80-100) fL MCH (26-34) PG MCHC (30-36) % RDW (11.6-14.8) % Plt Count (150-400) X10^3/uL Neut % (Auto) (50-75) % Lymph % (Auto) (25-40) % [place] % (Auto) (3-14) % Eos % (Auto) (2-4) % Baso % (Auto) (0-2) % Neut # (Auto) (8058-4057) /uL Lymph # (Auto) (8079-1864) /uL [place] # (Auto) (0-900) /uL Eos # (Auto) (0-450) /uL Baso # (Auto) (0-100) /uL PT (10.1-12.7) SECONDS INR (0.9-1.3) D-Dimer 2884 H (<500) ng/ml Sodium 134 L (137-145) mmol/L Potassium 3.7 (3.4-5.1) mmol/L Chloride 102 (98-107) mmol/L Carbon Dioxide 24 (22-32) mmol/L BUN 59 H (9-20) mg/dL Creatinine 1.97 H (0.66-1.25) mg/dL Estimated GFR 36 L (>60) mL/min BUN/Creatinine Ratio 29.9 H (6-22) Glucose 82 (80-110) mg/dL Lactate (0.7-2.1) mmol/L Calcium 9.2 (8.4-10.2) mg/dL Total Bilirubin 0.9 (0.2-1.3) mg/dL AST 66 H (17-59) IU/L ALT 43 (<50) IU/L Alkaline Phosphatase 108 D (38-126) U/L Total Creatine Kinase 21 L (55-170) U/L Troponin I 0.127 H* (0.01-0.034) ng/mL NT-Pro-B Natriuret Pep (<125) pg/mL Total Protein 5.2 L (6.3-8.2) g/dL Albumin 2.3 L (3.5-5.0) g/dL Globulin 2.9 (1.7-4.1) g/dL Albumin/Globulin Ratio 0.8 L (1.0-2.8) Ur Random Sodium 6 L (30-90) mmol/L Urine Creatinine 151.8 mg/dL MDM Narrative Medical decision making narrative: CC: 72-year-old male with significant weakness, shortness of breath and fatigue Complicating co-morbidities: Age, hypertension, prior smoker Data collected from: Patient Medical records reviewed: Prior notes reviewed in our EMR Differential considered, but not limited to: Cardiac ischemia versus congestive heart failure versus liver disease versus kidney disease versus undiagnosed cancer versus other Exam documented above, pertinent findings include: Dry mucous membranes, temporal wasting, significant shortness of breath with minimal exertion, prolonged expiratory phase and decreased lung sounds bilaterally, poor skin t urgor Lab Test results independently reviewed as above. Pertinent findings: Leukocytosis with relative left shift, no signs of anemia. D-dimer critically elevated at 2884, creatinine elevated at 2.23, lactate elevated at 2.4, troponin rising from 0.11-0.127, BNP at 3770, Albumin decreased at 2.3, Lactate/Albumin ratio = 1.04 Independently reviewed EKG as above Imaging studies independently reviewed: CTA of chest demonstrates no pulmonary embolism, however there are bilateral pleural effusions small on the left and small on the right, interlobar septal thickening bilaterally with multiple small nodules, suspicious for lymphangitic carcinomatosis. ABD/Pelvis with evidence of a numerable mass lesions throughout the liver consistent with metastatic disease. Large amount of ascites and peritoneal thickening and enhancement as well as omental caking in the omentum and mesentery consistent with peritoneal carcinomatosis. Hypoattenuating enhancement of the spleen suspicious for infiltrative process. Diffuse colonic wall thickening suggestive of colitis with prominent thickening, cecal mass not fully excluded Consultations: Discussed with Dr. Neil, will admit to address fluid status, which will be complicated given dehydration with acute kidney injury and FENA (0.1%) dry mucous membranes and poor skin turgo, but also evidence of 3rd spacing. Discussion: Patient presents with significant shortness of breath and generalized weakness which has greatly worsened over the past few days. He states that overall he has been feeling increasingly ill over the past 3 months or so with significant worsening over the past 3 weeks and even worse over the past 2-3 days. He can no longer take more than 4 5 steps without becoming profoundly short of breath and the need to sit down. He has no significant EKG changes but multiple lab abnormalities as noted above. Patient is malnourished with increasing weight loss, poor appetite, renal failure, heart failure, troponin release, widespread abnormalities on imaging suggestive of significant metastatic disease requires hospitalization for stabilization of his condition, likely will need social work, care management, consideration of hospice Disposition: see below, along with detailed discharge instructions that have b yudi reviewed with patient as well as indications for ED re-evaluation and additional outpatient follow up Critical Care Time Critical Care Time Critical Care Time: Yes Total Critical Care Time: 45 Attestation: The high probability of a clinically significant, sudden or life threatening deterioration of the [CV] system(s) required my full and direct attention, intervention and personal management. The aggregate critical care time was [60] minutes. This time is in addition to time spent performing reported procedures but includes the following: [x] Data Review and interpretation [x] Patient assessment and monitoring of vital signs [x] Documentation [x] Medication orders and management Discharge Plan Departure Patient Disposition: Admitted As Inpatient Clinical Impression: Non-ST elevation VT (NSTEMI), Acute CHF, Acute kidney injury, Metastatic cancer to liver, Abdominal carcinomatosis
[2022-11-25 21:18] LABS: Troponin I 0.114 ng/mL (0.01-0.034)
[2022-11-25] MEDS: SODIUM CHLORIDE 0.9% 1,000 ML 1000 ML IV (21:38)
[2022-11-25 22:17] LABS: D Dimer 2884 ng/ml (<500)
--- NOTE | 2022-11-25 22:45 | DI.CT.S_ITS ---
PROCEDURE: CT ABDOMEN PELVIS W CON INDICATIONS: septic TECHNIQUE: After the administration of IV contrast, axial sections were acquired from the lung bases to the pubic symphysis. Coronal and sagittal reformats were performed. For radiation dose reduction, the following was used: automated exposure control, adjustment of mA and/or kV according to patient size. COMPARISON: None. FINDINGS: Image quality: Excellent. Lung bases: There are bilateral pleural effusions, small to moderate on the left and minimal on the right, with associated compressive atelectasis. Heart: Heart is normal in size. ABDOMEN: Liver: There are innumerable hypoattenuating mass lesions throughout the liver involving all lobes consistent with metastatic disease. Gallbladder: Within normal limits without calcified gallstones. Biliary ducts: No biliary ductal dilatation. Pancreas: Unremarkable. Spleen: Normal in size. There is heterogeneous enhancement of the spleen is suspicious for an infiltrative process with a wedge-shaped hypodensity laterally compatible with an infarct. Adrenal Glands: No adrenal nodules. Kidneys and Ureters: No hydronephrosis. There is a right renal cortical cyst. Stomach and Bowel: There is colonic wall thickening throughout the colon most prominent within the cecum. There is segmental wall thickening also demonstrated within the distal ileum. Peritoneum: There is a large amount of ascites in the abdomen and pelvis. Associated mild peritoneal thickening and enhancement are demonstrated. Fat stranding and numerous nodules are demonstrated within the omentum and mesentery. The findings are consistent with peritoneal carcinomatosis. No free air. Ventral Wall: No hernia. Abdominal Nodes: No retroperitoneal or mesenteric adenopathy by size criteria. Vessels: Aorta and inferior vena cava are normal in size. PELVIS: Pelvic Organs: Unremarkable. Bladder: Unremarkable. Pelvic Nodes: No enlarged lymph nodes. Miscellaneous: No inguinal hernias are seen. Bones: Visualized osseous structures demonstrate no suspicious focal lesions. IMPRESSION: 1. Innumerable hypoattenuating mass lesions demonstrated throughout the liver consistent with metastatic disease. 2. Large amount of ascites with peritoneal thickening and enhancement as well as omental caking and diffuse soft tissue nodules in the omentum and mesentery consistent with peritoneal carcinomatosis. 3. Hypoattenuating heterogeneous enhancement of the spleen suspicious for an infiltrative process with a wedge-shaped infarct anterosuperiorly. 4. Diffuse colonic wall thickening suggestive of a colitis with prominent thickening in the colon. The differential also includes portal colopathy. A cecal mass is also not fully excluded. 5. Segmental wall thickening in the distal ileum suggestive of an enteritis. Dictated by: Antwan Blair M.D. on 11/26/2022 at 1:21 Approved by: Anwtan Blair M.D. on 11/26/2022 at 1:27
--- NOTE | 2022-11-25 22:45 | DI.CT.S_ITS ---
PROCEDURE: CT ANGIO CHEST PE PROTOCOL INDICATIONS: SOB, critical Dimer TECHNIQUE: After the administration of intravenous contrast, 2 mm thick sections acquired from the pulmonary apices to the posterior costophrenic angles. 3-dimensional maximum intensity projection (MIP) coronal and sagittal reformats were then acquired through the thorax. For radiation dose reduction, the following was used: automated exposure control, adjustment of mA and/or kV according to patient size. COMPARISON: [facility], CT, CT ABDOMEN PELVIS W CON, 11/25/2022, 23:18. FINDINGS: Image quality: Excellent. Pulmonary arteries: Pulmonary arteries demonstrate no intraluminal filling defects to suggest central pulmonary embolism. Lower Neck: No lymphadenopathy by size criteria. Thyroid: Visualized thyroid demonstrates no discrete nodules. Axillae: No lymphadenopathy by size criteria. Chest Wall: Unremarkable. Bones: Visualized osseous structures demonstrate no suspicious lesions. Lungs and Airways: No acute consolidation. There are areas of interlobular septal thickening in the upper lobes, right greater than left with small associated nodules. There is compressive atelectasis. The trachea and central airways are patent. Pleura: No pneumothorax. There are bilateral pleural effusions, small to moderate on the left and small on the right. Heart: Heart size is normal. No pericardial effusion. Thoracic Vessels: The thoracic aorta is normal in size. Mediastinum and [place]: No lymphadenopathy by size criteria. Esophagus: No wall thickening. No hiatal hernia. Abdomen: Visualized upper abdomen demonstrates innumerable masses within the visualized liver. There is a large amount of ascites in the upper abdomen as well as peritoneal thickening. Multiple soft tissue nodules are demonstrated within the omentum and mesentery consistent with peritoneal carcinomatosis. IMPRESSION: 1. No evidence of pulmonary embolism. 2. Bilateral pleural effusions, small to moderate on the left and small on the right. 3. Interlobular septal thickening bilaterally, right greater than left, with associated small nodules. The findings are suspicious for lymphangitic carcinomatosis. 4. Visualized upper abdomen demonstrates innumerable mass lesions within the liver consistent with metastatic disease. 5. Large amount of ascites in the upper abdomen. The the Dictated by: Antwan Blair M.D. on 11/26/2022 at 0:58 Approved by: Antwan Blair M.D. on 11/26/2022 at 1:01
[2022-11-26] VITALS (22 sets, daily range): BP systolic 143–176; BP diastolic 75–93; PULSE 69–102; RESP 12–32; TEMP 35.2–35.5; O2SAT 89–97; BMI 20.3
[2022-11-26 00:22] LABS: Creatinine Urine Random 151.8 mg/dL; Sodium Urine Random 6 mmol/L (30-90)
[2022-11-26] MEDS: SODIUM CHLORIDE 0.9% 1,000 ML 1000 ML IV (01:30)
[2022-11-26 02:43] LABS: Alanine Aminotransferase 43 IU/L (<50); Albumin 2.3 g/dL (3.5-5.0); Albumin Globulin Ratio 0.8 (1.0-2.8); Alkaline Phosphatase 108 U/L (38-126); Aspartate Aminotransferase 66 IU/L (17-59); BUN Creatinine Ratio 29.9 (6-22); Bilirubin Total 0.9 mg/dL (0.2-1.3); Blood Urea Nitrogen 59 mg/dL (9-20); Calcium 9.2 mg/dL (8.4-10.2); Carbon Dioxide 24 mmol/L (22-32); Chloride 102 mmol/L (98-107); Creatine Kinase 21 U/L (55-170); Estimated Glomerular Filt Rate 36 mL/min (>60); Globulin 2.9 g/dL (1.7-4.1); Glucose 82 mg/dL (80-110); HEMOLYSIS < 15 (0-50); Potassium 3.7 mmol/L (3.4-5.1); Sodium 134 mmol/L (137-145); Total Protein 5.2 g/dL (6.3-8.2)
[2022-11-26 02:58] LABS: Troponin I 0.127 ng/mL (0.01-0.034)
[2022-11-26] MEDS: cefTRIAXone 1,000 MG in SODIUM CHLORIDE 0.9% 100 ML 200 MG IV (04:44)
--- NOTE | 2022-11-26 05:09 | PM.HP.1 ---
History of Present Illness History of Present Illness Chief complaint: SOB Narrative: 72 y/o with PMH of HTN and smoking, developed progressive generalized weakness, exertional dyspnea, in the last 3 months. In the past few weeks he further decreased PO intake due to lack of appetite. Presents to ED dehydrated, with RADHA and evidence of extensive abdominal malignancy. [facility] Social History Smoking Status: Former smoker Meds Home Medications and Allergies Home Medications Medication Instructions Recorded Confirmed Type furosemide 20 mg tablet 20 mg PO DAILY 11/26/22 11/26/22 History lisinopril 5 mg tablet 5 mg PO DAILY 11/26/22 11/26/22 History methadone 25 mg DAILY 11/26/22 11/26/22 History Allergies Allergy/AdvReac Type Severity Reaction Status Date / Time bee venom protein (honey bee) Allergy Swelling Verified 11/25/22 15:58 of Lip/Tongue/Throat Review of Systems Review of Systems Narrative: Progressive weakness, can make only 4-5 steps and then has to take a break Without fever or chills Without abdominal pain Without dysuria Short of breath with activity Exam Vital Signs (past 8 hours): - 11/25/22 21:30 11/25/22 21:30 11/25/22 22:00 Pulse Rate 87 Respiratory Rate 20 Blood Pressure 138/73 159/71 H Pulse Oximetry 95 11/25/22 22:00 11/25/22 22:30 11/25/22 22:30 Pulse Rate 87 86 Respiratory Rate 17 13 Blood Pressure 132/63 Pulse Oximetry 96 97 11/25/22 23:00 11/25/22 23:00 11/26/22 00:00 Pulse Rate 85 87 Respiratory Rate 18 18 Blood Pressure 136/69 Pulse Oximetry 95 90 L 11/26/22 00:30 11/26/22 01:00 11/26/22 01:30 Pulse Rate 85 86 91 H Respiratory Rate 14 18 13 Blood Pressure Pulse Oximetry 95 94 11/26/22 02:00 11/26/22 02:30 11/26/22 03:00 Pulse Rate 72 71 69 Respiratory Rate 15 17 17 Blood Pressure Pulse Oximetry 94 93 94 11/26/22 04:00 Pulse Rate 73 Respiratory Rate 16 Blood Pressure Pulse Oximetry 93 Oxygen Delivery Method Room Air Eyes EOM: EOM intact bilaterally Resp Other: decreased breath sounds over bases Cardio Other: RRR Other: not distended Skin Other: not jaundiced Neuro Other: w/o focal deficits Psych Other: appropriate affect Objective Labs 11/25/22 16:45 11/26/22 02:20 Labs: Laboratory Results - last 24 hr 11/25/22 11/25/22 11/25/22 16:45 16:45 16:45 WBC 15.4 H RBC 5.73 Hgb 14.8 Hct 44.7 MCV 78.1 L MCH 25.8 L MCHC 33.1 RDW 16.8 H Plt Count 223 Neut % (Auto) 85.2 H Lymph % (Auto) 10.0 L [place] % (Auto) 4.5 Eos % (Auto) 0.0 L Baso % (Auto) 0.3 Neut # (Auto) 84958 H Lymph # (Auto) 1500 [place] # (Auto) 700 Eos # (Auto) 0 Baso # (Auto) 0 PT 15.7 H INR 1.4 H D-Dimer Sodium 136 L Potassium 4.1 Chloride 98 Carbon Dioxide 26 BUN 58 H Creatinine 2.23 H Estimated GFR 31 L BUN/Creatinine Ratio 26.0 H Glucose 100 Lactate Calcium 11.0 H Total Bilirubin 1.3 AST 89 H ALT 61 H Alkaline Phosphatase 191 H Total Creatine Kinase Troponin I 0.111 H NT-Pro-B Natriuret Pep 3770 H Total Protein 7.5 Albumin 3.8 Globulin 3.7 Albumin/Globulin Ratio 1.0 Ur Random Sodium Urine Creatinine 11/25/22 11/25/22 11/25/22 16:45 19:24 20:40 WBC RBC Hgb Hct MCV MCH MCHC RDW Plt Count Neut % (Auto) Lymph % (Auto) [place] % (Auto) Eos % (Auto) Baso % (Auto) Neut # (Auto) Lymph # (Auto) [place] # (Auto) Eos # (Auto) Baso # (Auto) PT INR D-Dimer Sodium Potassium Chloride Carbon Dioxide BUN Creatinine Estimated GFR BUN/Creatinine Ratio Glucose Lactate 2.3 H 2.4 H Calcium Total Bilirubin AST ALT Alkaline Phosphatase Total Creatine Kinase Troponin I 0.114 H NT-Pro-B Natriuret Pep Total Protein Albumin Globulin Albumin/Globulin Ratio Ur Random Sodium Urine Creatinine 11/25/22 11/25/22 11/26/22 21:40 23:48 02:20 WBC RBC Hgb Hct MCV MCH MCHC RDW Plt Count Neut % (Auto) Lymph % (Auto) [place] % (Auto) Eos % (Auto) Baso % (Auto) Neut # (Auto) Lymph # (Auto) [place] # (Auto) Eos # (Auto) Baso # (Auto) PT INR D-Dimer 2884 H Sodium 134 L Potassium 3.7 Chloride 102 Carbon Dioxide 24 BUN 59 H Creatinine 1.97 H Estimated GFR 36 L BUN/Creatinine Ratio 29.9 H Glucose 82 Lactate Calcium 9.2 Total Bilirubin 0.9 AST 66 H ALT 43 Alkaline Phosphatase 108 D Total Creatine Kinase 21 L Troponin I 0.127 H* NT-Pro-B Natriuret Pep Total Protein 5.2 L Albumin 2.3 L Globulin 2.9 Albumin/Globulin Ratio 0.8 L Ur Random Sodium 6 L Urine Creatinine 151.8 Assessment & Plan Assessment and plan (1) Acute kidney injury: Status: Acute (2) Abdominal carcinomatosis: Status: Acute (3) 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 RADHA - IVFs, repeat BMP 2. 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 Severe protein calorie malnutrition - consider nutritional supplements DVT prophylaxis - heparin
[2022-11-26] MEDS: SODIUM CHLORIDE 0.9% 1,000 ML 100 ML IV (07:32)
--- NOTE | 2022-11-26 07:51 | P.HP_ITS ---
History of Present Illness History of Present Illness Date Patient Seen: 11/26/22 Chief complaint: SOB Narrative: Alistair Arteaga is a 72-year-old male former smoker with history of hypertension presents with his daughter and a chief complaint of increasing fatigue and shortness of breath.? He has been having trouble for the past few weeks and it seems to have started when he was walking upstairs and became significantly short of breath.? He was seen and evaluated here a few weeks ago and found to have an acute kidney injury and CHF and was discharged with encouragement to follow-up.? He had contact with his primary care provider who has ordered an outpatient stress test and echocardiogram which is scheduled for 2 days now.? He denies dizziness or lightheadedness.? He is had poor appetite and states that now he is so short of breath he can not make it more than 4-5 feet without having to stop.? He denies any weight loss or weight gain.? He denies abdominal pain, diarrhea or constipation. Found to have diffuse peritoneal carcinomatosis and hepatic mets on CT abd/pelvis. [facility] Social History household members: children Smoking Status: Former smoker alcohol intake: former Meds Home Medications and Allergies Home Medications Medication Instructions Recorded Confirmed Type furosemide 20 mg tablet 20 mg PO DAILY 11/26/22 11/26/22 History lisinopril 5 mg tablet 5 mg PO DAILY 11/26/22 11/26/22 History methadone 25 mg DAILY 11/26/22 11/26/22 History Allergies Allergy/AdvReac Type Severity Reaction Status Date / Time bee venom protein (honey bee) Allergy Swelling Verified 11/25/22 15:58 of Lip/Tongue/Throat Review of Systems Review of Systems Narrative: All other systems reviewed with the patient and are negative unless otherwise stated. Exam Vital Signs (past 8 hours): - 11/26/22 00:00 11/26/22 00:30 11/26/22 01:00 Pulse Rate 87 85 86 Respiratory Rate 18 14 18 Pulse Oximetry 90 L 95 94 11/26/22 01:30 11/26/22 02:00 11/26/22 02:30 Pulse Rate 91 H 72 71 Respiratory Rate 13 15 17 Pulse Oximetry 94 93 11/26/22 03:00 11/26/22 04:00 11/26/22 04:30 Pulse Rate 69 73 88 Respiratory Rate 17 16 32 H Pulse Oximetry 94 93 93 11/26/22 05:00 11/26/22 05:30 11/26/22 06:00 Pulse Rate 91 H 102 H 93 H Respiratory Rate 20 21 13 Pulse Oximetry 89 L 97 11/26/22 06:30 Pulse Rate 89 Respiratory Rate 17 Pulse Oximetry Oxygen Delivery Method Room Air Narrative Exam Narrative: GEN: no acute distress, cachectic HEENT: moist mucous membranes, PERRL NECK: trachea midline, no JVD CV: regular rate and rhythm, no murmurs PULM: clear bilaterally ABD: distended with fluid wave and tympanic, non-tender EXT: cyanotic fingers bilaterally consistent with Buerger's, 2+ pitting edema of LE's NEURO: awake, alert, disoriented Objective Labs 11/26/22 08:34 11/26/22 08:34 Labs: Laboratory Results - last 24 hr 11/25/22 11/25/22 11/25/22 16:45 16:45 16:45 WBC 15.4 H RBC 5.73 Hgb 14.8 Hct 44.7 MCV 78.1 L MCH 25.8 L MCHC 33.1 RDW 16.8 H Plt Count 223 Neut % (Auto) 85.2 H Lymph % (Auto) 10.0 L Stanton % (Auto) 4.5 Eos % (Auto) 0.0 L Baso % (Auto) 0.3 Neut # (Auto) 89952 H Lymph # (Auto) 1500 Stanton # (Auto) 700 Eos # (Auto) 0 Baso # (Auto) 0 PT 15.7 H INR 1.4 H D-Dimer Sodium 136 L Potassium 4.1 Chloride 98 Carbon Dioxide 26 BUN 58 H Creatinine 2.23 H Estimated GFR 31 L BUN/Creatinine Ratio 26.0 H Glucose 100 Lactate Calcium 11.0 H Total Bilirubin 1.3 AST 89 H ALT 61 H Alkaline Phosphatase 191 H Total Creatine Kinase Troponin I 0.111 H NT-Pro-B Natriuret Pep 3770 H Total Protein 7.5 Albumin 3.8 Globulin 3.7 Albumin/Globulin Ratio 1.0 Ur Random Sodium Urine Creatinine 11/25/22 11/25/22 11/25/22 16:45 19:24 20:40 WBC RBC Hgb Hct MCV MCH MCHC RDW Plt Count Neut % (Auto) Lymph % (Auto) Stanton % (Auto) Eos % (Auto) Baso % (Auto) Neut # (Auto) Lymph # (Auto) Stanton # (Auto) Eos # (Auto) Baso # (Auto) PT INR D-Dimer Sodium Potassium Chloride Carbon Dioxide BUN Creatinine Estimated GFR BUN/Creatinine Ratio Glucose Lactate 2.3 H 2.4 H Calcium Total Bilirubin AST ALT Alkaline Phosphatase Total Creatine Kinase Troponin I 0.114 H NT-Pro-B Natriuret Pep Total Protein Albumin Globulin Albumin/Globulin Ratio Ur Random Sodium Urine Creatinine 11/25/22 11/25/22 11/26/22 21:40 23:48 02:20 WBC RBC Hgb Hct MCV MCH MCHC RDW Plt Count Neut % (Auto) Lymph % (Auto) Stanton % (Auto) Eos % (Auto) Baso % (Auto) Neut # (Auto) Lymph # (Auto) Stanton # (Auto) Eos # (Auto) Baso # (Auto) PT INR D-Dimer 2884 H Sodium 134 L Potassium 3.7 Chloride 102 Carbon Dioxide 24 BUN 59 H Creatinine 1.97 H Estimated GFR 36 L BUN/Creatinine Ratio 29.9 H Glucose 82 Lactate Calcium 9.2 Total Bilirubin 0.9 AST 66 H ALT 43 Alkaline Phosphatase 108 D Total Creatine Kinase 21 L Troponin I 0.127 H* NT-Pro-B Natriuret Pep Total Protein 5.2 L Albumin 2.3 L Globulin 2.9 Albumin/Globulin Ratio 0.8 L Ur Random Sodium 6 L Urine Creatinine 151.8 Assessment & Plan Assessment and plan (1) Acute kidney injury: Status: Acute (2) Abdominal carcinomatosis: Status: Acute (3) Metastatic cancer to liver: Status: Acute Assessment & Plan narrative: # newly diagnosed peritoneal carcinomatosis with hepatic mets -per CT abdomen and pelvis, source of cancer unclear -initially IR consulted for peritoneal biopsy that they felt it was too high risk -spoke with general surgery who also said patient was too high risk for laparoscopic biopsy -paracentesis recommended however patient did not want this -he elects to received no treatment at this time -hospice referral being placed through [facility] -CEA normal, CA 19-9 pending # bilateral pitting edema with pleural effusions -likely CHF related, but patient does not want any treatment so echo cancelled # RADHA -likely CHF related # chronic methadone use -continue home methadone Dispo: Pending hospice referral then will discharge home.
[2022-11-26 08:56] LABS: Add Manual Diff / Slide Review NO; Basophils Absolute Auto 0 /uL (0-100); Basophils Percent Auto 0.1 % (0-2); Eosinophils Absolute Auto 0 /uL (0-450); Hematocrit 38.9 % (41-53); Hemoglobin 12.9 g/dL (13.5-17.5); Lymphocytes Absolute Auto 1000 /uL (1100-4500); Lymphocytes Percent Auto 8.1 % (25-40); Mean Corpuscular HGB Conc 33.2 % (30-36); Mean Corpuscular Hemoglobin 26.1 PG (26-34); Mean Corpuscular Volume 78.5 fL (80-100); Monocytes Absolute Auto 400 /uL (0-900); Monocytes Percent Auto 3.8 % (3-14); Neutrophils Absolute Auto 10400 /uL (1500-7000); Platelet Count 152 X10^3/uL (150-400); Red Blood Cell Count 4.95 X10^6/uL (4.5-5.9); Red Cell Distribution Width 16.6 % (11.6-14.8); White Blood Cell Count 11.8 X10^3/uL (4.5-11.0)
--- NOTE | 2022-11-26 09:11 | PT.IIE ---
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) Acute kidney failure, unspecified (11/26/22) Physical Therapy Inpatient Evaluation/Re-Eval M1 PT/OT-IP Prior Functional Status Start: 11/26/22 08:53 Freq: NEEDED Status: Active Protocol: Document 11/26/22 08:35 MB (Rec: 11/26/22 09:11 MB [id number]) Medical Review Prior Functional Status Medical History Reviewed Yes Communication Unknown Mobility and Gait Pt is unclear. States he made something to help walk for grandmother. Activities of Daily Living and IADL's Pt is unclear. States that if he has to, I'll just keep driving forever. Social History Household Members children Living Arrangements House Number of Stairs To Enter/Railing? Pt cannot state if it is a home in which he lives. He states that he has two lots near [facility] in [facility] and that it [place]. He states there are two steps to enter. He perseverates on getting his daughter out of [facility] in [facility] either 6 months ago or three years ago. Employment Status Unknown Additional Social History Comment Pt cannot answer any PLOF questions accurately. He states his daughter is 18 y/o and then he states she is 15 y /o M2 PT-IP Current Condition Start: 11/26/22 08:53 Freq: NEEDED Status: Active Protocol: Document 11/26/22 08:35 MB (Rec: 11/26/22 09:11 MB [id number]) Physical Therapy Current Condition Current Condition Evaluation Date 11/26/22 Treatment Diagnosis Encephalopathy in setting of new dxs of metastatic abdominal CA to liver Onset Date Unknown M3 PT-IP Subjective Start: 11/26/22 08:53 Freq: NEEDED Status: Active Protocol: Document 11/26/22 08:35 MB (Rec: 11/26/22 09:11 MB [id number]) Subjective Physical Therapy Visit Type Type Initial Evaluation Visit Start Time 08:35 Visit Stop Time 08:51 Total Visit Minutes 16 Number of ENGLISH TUTOR Visits 0 Physical Therapy Visit Comments Patient Comments I've met you before! You've met my daughter before! Patient Goals Unclear, presumably to return home to his daughter Therapy Pain Assessment Pain When Pain Assessed At Rest Pain Present Pain Present Denied Pain M4 PT-IP Mobility and Gait Start: 11/26/22 08:53 Freq: NEEDED Status: Active Protocol: Document 11/26/22 08:35 MB (Rec: 11/26/22 09:11 MB [id number]) PT-Bed Mobility Assessment Rolling Type of Rolling Roll to Right Level of Assist Contact Guard Assistance,1 Person Assistance Supine to Sit Supine to Sit Contact Guard Assistance,1 Person Assistance,Head of Bed Elevated,Bedrails Sit to Supine Sit to Supine Contact Guard Assistance,1 Person Assistance,Head of Bed Elevated,Bedrails Scooting Scooting to Edge of Bed Standby Assistance PT-Transfer Assessment Sit to and From Stand Sit to and from Stand Contact Guard Assistance,1 Person Assistance,Use of Upper Extremities Equipment Transfer Assistive Device None Orthotic/Prosthetic Devices or Brace: No Transfer Ability Level of Assist Contact Guard Assistance,1 Person Assistance,Use of Upper Extremities Comments Mobility Comments Pt on eliz in ED with head of eliz elevated and use of rail on the left for bed mobility Gait Assessment Gait Gait Assistance Required: Minimum Assistance,1 Person Assist Distance (Feet) 2 Able to Maintain Weight Bearing Status Yes During Gait Assistive Devices Assistive Device None Orthotic/Prosthetic Devices or Brace: No Gait Deviations General Gait Pattern Decreased Stride Length, Decreased Feet Clearance, Narrow Based Gait Factors Limiting Gait Function Factors Limiting Gait Function Decreased Strength,Difficulty Following Directions, Incoordination,Poor Balance, Poor Safety Awareness Comments Gait Comments Side stepping right and left, two steps each direction and forward and backward stepping two steps with PT min A for balance support. Pt states he needs to stop after short stepping and he appears fatigued. BP and HR before treatment are WFLs, BP slightly elevated. PT-Balance Assessment Sitting Balance and Reactions Static Sitting Balance Ability Fair Dynamic Sitting Balance Ability Fair Standing Balance and Reactions Static Standing Balance Ability Fair Dynamic Standing Balance Ability Fair Device Used Around the waist support from PT M5 PT-IP Objective Assessments Start: 11/26/22 08:53 Freq: NEEDED Status: Active Protocol: Document 11/26/22 08:35 MB (Rec: 11/26/22 09:11 MB [id number]) Orientation Orientation/Cognition Level of Alertness Confusional State Orientation Name,Birthday Safety Awareness Decreased Safety Awareness Memory Description Short Term Impaired,Manager Welding Impaired Comments Pt is very confused about situation, location, date. He states that he is in [place] twice, even after cued to [place], [place]. He is unclear about living situations, his daughter's age , PLOF questions and has no awareness of new abdominal cancer dx when PT asks him if he remembers what he might have talked with the providers about regarding his abdomen. He perseverates on getting his daughter out of [facility] in [facility], that he has two automobiles and will keep driving. Gross Range of Motion Lower Extremity ROM Impairments Pt does not follow range or strength cues well. Strength Comments Strength Comments Pt does not follow MMT cues well. B ankle DF appears WNLs and his proximal legs require use of his hands to move and he has decreased muscle mass. He has abdominal distention and B ankle and foot edema. Coloring of hands and fingernails is also abnormal: purplish poon in appearance. Coordination Assessment Assessment Coordination Comments Pt does not respond well to coordination tasks Sensation Assessment Comments Sensation Comments Pt does not respond well to sensory tasks M7 PT-IP Assessment and Plan Start: 11/26/22 08:53 Freq: NEEDED Status: Active Protocol: Document 11/26/22 08:35 MB (Rec: 11/26/22 09:11 MB [id number]) PT Summary Assessment and Plan Potential Rehabilitation Potential Poor Status of Condition at Evaluation Unstable Summary Impairments Balance,Cognition,Bed Mobility ,Transfers,Gait,Activity Tolerance Progress Towards Goals Slow Progress due to Medical Issues Assessment Summary Pt is a 72 y/o male presenting with new dx of metastatic abdominal CA to liver. He is very confused and is a poor historian. Per nsg, he has had many ED visits d/t cardiac presentations but has not been admitted. There is some concern about pt caring for his daughter at home who appears to be between ages 13- 18 y/o from what pt and nsg state. Pt presents with skin discoloration in his hands, LE edema, quick fatigue with mobility, abdominal distention and functional weakness and imbalance. Unsure what medical plan/prognosis is for pt. Per nsg, he is going to be admitted inpatient and so PT will follow to assist with d/c planning and may consider d/ cing acute PT once plan is established. Pt will require 24 hour assistance in his current presentation at d/c. Goals Bed Mobility Goal Standby Assistance Transfer Goal Standby Assistance,Front Wheeled Walker Gait Goal Standby Assistance,Front Wheel Walker Gait Distance 75 Other Goals Pt will ascend and descend 2 steps with rail to allow d/c home with 24 hour assistance, if appropriate. Frequency of Treatment Frequency Of Treatment Once a Day Treatment Plan Physical Therapy Treatment Plan Bed Mobility Training,Transfer Training,Gait Training, Balance Retraining,Discharge Planning Weight Bearing Status Weight Bearing Status Weight Bear as Tolerated Recommendations To Nursing Amount of Assist Needed 1 Person Assist Discharge Recommendations PT Discharge Recommendations Home with 24/7 Assist Available,Home vs SNF Other Discharge Recommendations One note states that palliative/hospice is being considered for pt. He has no insight into his medical condition with PT this date d/ t confusion. Transportation Needs at Discharge Private Vehicle
[2022-11-26 09:16] LABS: Alanine Aminotransferase 48 IU/L (<50); Albumin 2.7 g/dL (3.5-5.0); Albumin Globulin Ratio 0.9 (1.0-2.8); Alkaline Phosphatase 135 U/L (38-126); Aspartate Aminotransferase 72 IU/L (17-59); BUN Creatinine Ratio 31.1 (6-22); Bilirubin Total 0.8 mg/dL (0.2-1.3); Blood Urea Nitrogen 60 mg/dL (9-20); Calcium 9.9 mg/dL (8.4-10.2); Carbon Dioxide 24 mmol/L (22-32); Chloride 101 mmol/L (98-107); Estimated Glomerular Filt Rate 37 mL/min (>60); Globulin 2.9 g/dL (1.7-4.1); Glucose 91 mg/dL (80-110); HEMOLYSIS < 15 (0-50); Potassium 3.6 mmol/L (3.4-5.1); Sodium 137 mmol/L (137-145); Total Protein 5.6 g/dL (6.3-8.2)
--- NOTE | 2022-11-26 09:29 | PC.NURSE ---
Day shift: Pt in room from ED at approx 0920. He is A&Ox4. VS WNL. RA 92%. Pt NPO at this time. Oriented to room and call light. Agrees to not get OOB w/o help from staff.
[2022-11-26 09:40] LABS: Troponin I 0.181 ng/mL (0.01-0.034)
[2022-11-26] MEDS: OXYCODONE IR 5 MG TABLET PO (09:45)
[2022-11-26 09:47] LABS: Carcinoembryonic Antigen 1.3 ng/mL (0.1-3.0)
--- NOTE | 2022-11-26 10:44 | PC.NURSE ---
Day shift: Dr Sams aware of Pts Trop of 0.181 at approx 0945.
--- NOTE | 2022-11-26 12:30 | PC.NURSE ---
Day shift: Pt asleep at this time (1230) w/ no s/s of pain or discomfort. Call light in reach. Bed alarm is on and door to room open. Will complete admit assessments when Pt awakens.
--- NOTE | 2022-11-26 14:49 | OT.IPNOTE ---
OT eval and treat order received. Chart reviewed and discussed in rounds. Pt is planned for sx this afternoon. Will hold OT at this time. In Rounds, it was requested to do a SLUMS when pt is evaluated. Will plan to see tomorrow, 11/27/22.
--- NOTE | 2022-11-26 15:13 | DI.CT.S_ITS ---
PROCEDURE: CT HEAD/BRAIN WO CON INDICATIONS: metastatic cancer, Altered mental status TECHNIQUE: Noncontrast 4.5 mm thick angled axial sections acquired from the foramen magnum to the vertex, with coronal and sagittal reformats. For radiation dose reduction, the following was used: automated exposure control, adjustment of mA and/or kV according to patient size. COMPARISON: None. FINDINGS: Image quality: Excellent. CSF spaces: Basal cisterns are patent. No extra-axial fluid collections. The ventricles are symmetric in size and shape. Brain: No intracranial bleeds or masses. There is cerebral volume loss for age, with resultant ventricular and sulcal prominence. There are periventricular and deep white matter chronic small vessel ischemic changes. There is intracranial internal carotid artery atherosclerosis. Skull and face: Calvarium and visualized facial bones appear intact, without suspicious lesions. Sinuses: Visualized sinuses and mastoids are clear. IMPRESSION: 1. No acute intracranial abnormalities. 2. Cerebral volume loss and chronic microvascular ischemic changes. Dictated by: Emily Macias M.D. on 11/26/2022 at 15:36 Approved by: Emily Macias M.D. on 11/26/2022 at 15:36
--- NOTE | 2022-11-26 15:45 | PC.NURSE ---
Day shift: Back in room at approx 1540. Resting in bed with no complaints at this time. Call light in reach.
--- NOTE | 2022-11-26 16:32 | CM.DANOTE ---
Due to patient arriving after the 0700 patient was not on the official case load for today. However, due to patient diagnosis/prognosis, provider requested CM team attempt to come up with d/c plan starting today. CM team readily agreed. ADJUSTMENT EXAMINER attempted to see patient multiple times. Patient was either outside of room or unable to be seen by this ADJUSTMENT EXAMINER. Provider reported to ADJUSTMENT EXAMINER that due to patient's cancer diagnosis, patient is a Hospice candidate. ADJUSTMENT EXAMINER attempted to inquire about age of daughter and who she is with. There was mixed reports in the documentation. Daughter appears to be 15 years old and staying with neighbors at this time. Daughter and neighbor will be at the hospital to visit patient at 1800 today. Per Faye at [facility], they have availability to open in [facility] Thursday through the weekend. Per Jocelyn at [facility], they have availability to open in [place] and Thursday. Plan: CM team will complete full assessment tomorrow. CM team will get preference for Hospice agency and will fax over referral information. Provider believes BLS transport may be appropriate. CM team will continue to follow closely. YUE Nur
[2022-11-26 17:45] LABS: Troponin I 0.128 ng/mL (0.01-0.034)
--- NOTE | 2022-11-26 17:51 | PM.CALLCOV.1 ---
Call Coverage Note Note Date of Patient Contact: 11/26/22 Time of Patient Contact: 17:52 Narrative of Care Provided: 72-year-old man with widely metastatic disease admitted to the hospital for failure to thrive. Carcinomatosis unknown etiology. Medicines requesting a omental biopsy. Record reviewed and patient examined. Extremely fragile patient who is cachectic confused likely secondary to brain metastasis and with numerous comorbidities including active NSTEMI, congestive heart failure COPD and acute kidney injury. Given his current status he is at extreme risk of mortality and morbidity with surgical intervention in particular laparoscopy. I would suggest paracentesis as an alternative possible means of establishing a diagnosis.
[2022-11-26 22:35] LABS: Troponin I 0.228 ng/mL (0.01-0.034)
[2022-11-27 01:44] VITALS: BP 140/91; PULSE 90; RESP 16; TEMP 36.2; O2SAT 95
[2022-11-27 06:05] LABS: Add Manual Diff / Slide Review NO; Basophils Absolute Auto 100 /uL (0-100); Basophils Percent Auto 0.4 % (0-2); Eosinophils Absolute Auto 0 /uL (0-450); Eosinophils Percent Auto 0.2 % (2-4); Hematocrit 41.3 % (41-53); Hemoglobin 13.6 g/dL (13.5-17.5); Lymphocytes Absolute Auto 2100 /uL (1100-4500); Lymphocytes Percent Auto 16.1 % (25-40); Mean Corpuscular Hemoglobin 25.9 PG (26-34); Mean Corpuscular Volume 78.5 fL (80-100); Monocytes Absolute Auto 700 /uL (0-900); Monocytes Percent Auto 5.5 % (3-14); Neutrophils Absolute Auto 10100 /uL (1500-7000); Neutrophils Percent Auto 77.8 % (50-75); Platelet Count 170 X10^3/uL (150-400); Red Blood Cell Count 5.26 X10^6/uL (4.5-5.9); Red Cell Distribution Width 16.9 % (11.6-14.8)
[2022-11-27 07:55] VITALS: BP 141/86; PULSE 101; RESP 17; TEMP 36.6; O2SAT 95
--- NOTE | 2022-11-27 08:23 | P.PN_ITS ---
Subjective Subjective Interval history: No chest or abdomen pain, no duyspnea. Exam Vital Signs (past 8 hours): - 11/27/22 01:44 11/27/22 07:55 Temperature 97.1 F L 97.8 F Pulse Rate 90 101 H Respiratory Rate 16 17 Blood Pressure 140/91 H 141/86 H Pulse Oximetry 95 95 Oxygen Flow Rate 0 0 Oxygen Delivery Method Room Air Oxygen Flow Rate 0 Narrative Exam Narrative: NAD Fluent speech Lungs clear Heart regular Abdomen soft No leg edema Objective Labs 11/27/22 05:45 11/26/22 08:34 Labs: Laboratory Results - last 24 hr 11/26/22 11/26/22 11/26/22 08:34 08:34 08:34 WBC 11.8 H RBC 4.95 Hgb 12.9 L Hct 38.9 L MCV 78.5 L MCH 26.1 MCHC 33.2 RDW 16.6 H Plt Count 152 Neut % (Auto) 88.0 H Lymph % (Auto) 8.1 L Arroyo % (Auto) 3.8 Eos % (Auto) 0.0 L Baso % (Auto) 0.1 Neut # (Auto) 16814 H Lymph # (Auto) 1000 L [place]o # (Auto) 400 Eos # (Auto) 0 Baso # (Auto) 0 Sodium 137 Potassium 3.6 Chloride 101 Carbon Dioxide 24 BUN 60 H Creatinine 1.93 H Estimated GFR 37 L BUN/Creatinine Ratio 31.1 H Glucose 91 Lactate Calcium 9.9 Total Bilirubin 0.8 AST 72 H ALT 48 Alkaline Phosphatase 135 H Troponin I 0.181 H* Total Protein 5.6 L Albumin 2.7 L Globulin 2.9 Albumin/Globulin Ratio 0.9 L Carcinoembryonic Ag 1.3 11/26/22 11/26/22 11/26/22 08:34 17:10 21:35 WBC RBC Hgb Hct MCV MCH MCHC RDW Plt Count Neut % (Auto) Lymph % (Auto) Arroyo % (Auto) Eos % (Auto) Baso % (Auto) Neut # (Auto) Lymph # (Auto) Ar[place]o # (Auto) Eos # (Auto) Baso # (Auto) Sodium Potassium Chloride Carbon Dioxide BUN Creatinine Estimated GFR BUN/Creatinine Ratio Glucose Lactate 2.0 Calcium Total Bilirubin AST ALT Alkaline Phosphatase Troponin I 0.128 H* 0.228 H* Total Protein Albumin Globulin Albumin/Globulin Ratio Carcinoembryonic Ag 11/27/22 05:45 WBC 13.0 H RBC 5.26 Hgb 13.6 Hct 41.3 MCV 78.5 L MCH 25.9 L MCHC 33.0 RDW 16.9 H Plt Count 170 Neut % (Auto) 77.8 H Lymph % (Auto) 16.1 L Ar[place]o % (Auto) 5.5 Eos % (Auto) 0.2 L Baso % (Auto) 0.4 Neut # (Auto) 18121 H Lymph # (Auto) 2100 [place] # (Auto) 700 Eos # (Auto) 0 Baso # (Auto) 100 Sodium Potassium Chloride Carbon Dioxide BUN Creatinine Estimated GFR BUN/Creatinine Ratio Glucose Lactate Calcium Total Bilirubin AST ALT Alkaline Phosphatase Troponin I Total Protein Albumin Globulin Albumin/Globulin Ratio Carcinoembryonic Ag [facility] Social History household members: children Smoking Status: Former smoker alcohol intake: former Assessment & Plan Assessment & Plan narrative: 1. RADHA, POAI. Continue IVF and follow. 2. New diagnosis of metastatic cancer of unknown primary. POA. Patient initially declined [facility] and asked for hospice. Now unsure. Will re offer paracentesis. 3. Opiate dependence, POAS. Continue methadone 30 daily. 4. Elevated troponin, POA. Follow clinically. No further [facility] at this point. Ongoing level of care discussions. Time Spent With Patient Time with patient: less than 30 minutes
[2022-11-27] MEDS: METHADONE 10 MG TABLET 30 MG PO (08:25)
--- NOTE | 2022-11-27 10:46 | PT.IPTN ---
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 Number of PLANT TECHNICIAN Visits 1 Physical Therapy Visit Comments Patient Comments Pt amenable to transferring to chair. M4 PT-IP Mobility and Gait Start: 11/26/22 08:53 Freq: NEEDED Status: Active Protocol: Document 11/27/22 10:31 KS (Rec: 11/27/22 12:12 KS [id number]) PT-Bed Mobility Assessment Supine to Sit Supine to Sit Standby Assistance,1 Person Assistance,Head of Bed Elevated Scooting Scooting to Edge of Bed Standby Assistance PT-Transfer Assessment Sit to and From Stand Sit to and from Stand Contact Guard Assistance,1 Person Assistance,Use of Upper Extremities Equipment Transfer Assistive Device Gait Belt,Front Wheeled Walker Orthotic/Prosthetic Devices or Brace: No Transfers Transfer Destination Chair Transfer Technique Ambulated Transfer Ability Level of Assist Contact Guard Assistance,1 Person Assistance,Use of Upper Extremities Comments Mobility Comments Pt in bed upon arrival, agreeable to transfer to chair . SBA for sup<>sit and scooting EOB. CGA for sit<> stand w/ FWW and 5 ft ambulation to chair. Pt left in chair w/ all needs in reach . Treatment shortened d/t uptrending troponins. Gait Assessment Gait Gait Assistance Required: Contact Guard Assist,1 Person Assist Distance (Feet) 5 Able to Maintain Weight Bearing Status Yes During Gait Assistive Devices Assistive Device Gait Belt,Front Wheeled Walker Orthotic/Prosthetic Devices or Brace: No Gait Deviations General Gait Pattern Decreased Stride Length, Decreased Feet Clearance, Narrow Based Gait Factors Limiting Gait Function Factors Limiting Gait Function Decreased Strength, Incoordination,Poor Balance, Poor Safety Awareness Comments Gait Comments No LOB w/ short distance ambulation using FWW. PT-Balance Assessment Sitting Balance and Reactions Static Sitting Balance Ability Fair Dynamic Sitting Balance Ability Fair Standing Balance and Reactions Static Standing Balance Ability Good Dynamic Standing Balance Ability Fair Device Used FWW M5 PT-IP Objective Assessments Start: 11/26/22 08:53 Freq: NEEDED Status: Active Protocol: Document 11/26/22 08:35 MB (Rec: 11/26/22 09:11 MB [id number]) Orientation Orientation/Cognition Level of Alertness Confusional State Orientation Name,Birthday Safety Awareness Decreased Safety Awareness Memory Description Short Term Impaired,Fci Impaired Comments Pt is very confused about situation, location, date. He states that he is in [place] twice, even after cued to [place], [place]. He is unclear about living situations, his daughter's age , PLOF questions and has no awareness of new abdominal cancer dx when PT asks him if he remembers what he might have talked with the providers about regarding his abdomen. He perseverates on getting his daughter out of [facility] in [facility], that he has two automobiles and will keep driving. Gross Range of Motion Lower Extremity ROM Impairments Pt does not follow range or strength cues well. Strength Comments Strength Comments Pt does not follow MMT cues well. B ankle DF appears WNLs and his proximal legs require use of his hands to move and he has decreased muscle mass. He has abdominal distention and B ankle and foot edema. Coloring of hands and fingernails is also abnormal: purplish poon in appearance. Coordination Assessment Assessment Coordination Comments Pt does not respond well to coordination tasks Sensation Assessment Comments Sensation Comments Pt does not respond well to sensory tasks M6 PT-IP Treatment Start: 11/26/22 08:53 Freq: NEEDED Status: Active Protocol: Document 11/27/22 12:12 KS (Rec: 11/27/22 12:12 KS [id number]) Physical Therapy Treatment Education Education Provided Safety M7 PT-IP Assessment and Plan Start: 11/26/22 08:53 Freq: NEEDED Status: Active Protocol: Document 11/27/22 10:31 KS (Rec: 11/27/22 12:12 KS [id number]) PT Summary Assessment and Plan Potential Rehabilitation Potential Poor Summary Impairments Balance,Cognition,Bed Mobility ,Transfers,Gait,Activity Tolerance Progress Towards Goals Slow Progress due to Medical Issues Assessment Summary Pt seemingly less confused today, agreeable to transfer to chair. SBA for bed mobility , CGA for sit<>Stand and short distance ambulation to chair using FWW. Pt may need FWW for home use if going home, he also inquired about a w/c. Goals Bed Mobility Goal Standby Assistance Transfer Goal Standby Assistance,Front Wheeled Walker Gait Goal Standby Assistance,Front Wheel Walker Gait Distance 75 Other Goals Pt will ascend and descend 2 steps with rail to allow d/c home with 24 hour assistance, if appropriate. Frequency of Treatment Frequency Of Treatment Once a Day Treatment Plan Physical Therapy Treatment Plan Bed Mobility Training,Transfer Training,Gait Training, Balance Retraining,Discharge Planning Weight Bearing Status Weight Bearing Status Weight Bear as Tolerated Recommendations To Nursing Amount of Assist Needed 1 Person Assist Discharge Recommendations PT Discharge Recommendations Home with 24/7 Assist Available,Home vs SNF Other Discharge Recommendations One note states that palliative/hospice is being considered for pt. Transportation Needs at Discharge Private Vehicle
--- NOTE | 2022-11-27 10:52 | OT.IPNOTE ---
Chart reviewed and discussed case with MD and FURNITURE DIPPER. Pt with uptrending troponins .181 and .228. requests to know if the pt can stand and take a few steps which FURNITURE DIPPER states he did this morning but that activity was limited d/t increasing troponins. agreed with this leader writer to hold on full OT eval till troponis are down trending. Will hold today and continue to follow.
[2022-11-27] MEDS: ASPIRIN EC 81 MG TABLET PO (11:52)
[2022-11-27] MEDS: METOPROLOL IR 25 MG TABLET 12.5 MG PO ×2 (11:52→20:59)
[2022-11-27 12:25] LABS: Troponin I 0.145 ng/mL (0.01-0.034)
[2022-11-27 15:00] VITALS: BP 135/90; PULSE 79; RESP 18; TEMP 36.3
--- NOTE | 2022-11-27 16:42 | CM.DANOTE ---
DCP Assessment Note: SHIP CLEANER reviewed EMR. Per provider in rounds, patient is going back and forth on what he wants for his care and future. SHIP CLEANER entered room and introduced self and role. Patient was sitting up in bed and appeared A/Ox4. Patient had reported he was living independently prior to this hospitalization with his 15yo daughter. Patient reports he had been homeschooling her because he doesn't trust the system. However over the past few months he has been getting weaker and weaker. He reports he has a wheelchair and walker at home but he wants new ones. Patient reports his daughter is staying with their neighbor/friend Oscar and his ([phone]). Patient gave CM team verbal permission to discuss d/c plan with Oscar. Patient has questions of what would happen to his daughter if he were to pass and he does not want her to end up in the system. SHIP CLEANER provided patient with senior resources booklet for legal information to create a will for his wishes for his daughter. Patient, if he choose not to pursue hospice, is open to HH. SHIP CLEANER provided patient with brochures for [place], [facility], and [facility]. SHIP CLEANER provided information for [facility] and [facility] Patient appeared to randomly pick [facility] but had no preference. Patient is open to an informational meeting to learn more. SHIP CLEANER called Jocelyn at [facility]. Janay will set up a meeting for tomorrow for patient to gain more information. Sageshannon Salcedo ([phone]) from [facility] called this SHIP CLEANER. He will be here tomorrow at 1300 for an informational meeting with patient. Nursing staff reported to SHIP CLEANER that Oscar and daughter was here. SHIP CLEANER entered room and introduced self and role. Oscar reports that he has been caring for daughter Vijaya while patient has been hospitalized. Oscar reports that he has been increasing in his assistance caring for patient and daughter over the last few months, primarily meals. SHIP CLEANER acted within area of competency and referred patient/family/friends to provider for medical questions. Per provider, he updated patient/daughter/neighbor on prognosis. Looking to plan more in the morning if home with hospice versus alternative plans. Plan: d/c plan to follow in morning. Meeting with [facility] tomorrow with family and patient at 1300. CM team will continue to follow closely. YUE Nur Discharge Planning/Care Management CM Discharge Assessment Start: 11/27/22 14:54 Freq: Status: Active Protocol: Document 11/27/22 14:54 (Rec: 11/27/22 15:09 [id number]) Discharge Planning Assessment Assigned General Assignment Reporter YUE Boogie Advance Directives? No History Provided By Patient,Medical Record Prior Living Arrangements House Household Members children Type of transporation used prior to Drives own vehicle admit Independent with ADL's Yes Is patient alert and oriented? Yes Comment patient has been living independently prior to this hospitalization. however, has been having increasing struggle with shortness of breath and cognitively. Caregiver for Another Yes: 15yr old Vijaya colon DME Already Rented / Owned Wheelchair,FWW / Walker Comment patient is deciding preference between hospice/home with HH. Patient is strongly against being place anywhere. Barriers to Discharge Yes Comment getting patient to decide if he wants treatment or to go home on hospice. Discharge Plan Home Transportation Arrangement yet to be determined. Patient has supportive neighbors that could likely drive him home. Whiteboard Updated in Patient Room with Yes name and ext. # of General Assignment Reporter Review Status In Process Next Review Type Continued Stay Review
--- NOTE | 2022-11-27 17:06 | PC.NURSE ---
Day shift: Pt refused Lovenox injection this evening. Explained injection reasoning but still refused.
[2022-11-27] MEDS: SODIUM CHLORIDE 0.9% FLUSH 10 ML IV (20:58)
[2022-11-27 23:00] VITALS: BP 138/79; PULSE 69; RESP 14; TEMP 35.6; O2SAT 96
[2022-11-27 23:07] LABS: Cancer (Carbohydrate) Ag 19-9 47 U/mL (0-35)
[2022-11-28 08:00] VITALS: BP 152/82; PULSE 80; RESP 17; TEMP 36.3; O2SAT 96
[2022-11-28] MEDS: ENOXAPARIN 40 MG/0.4 ML SYRINGE SUBCUT (08:46)
[2022-11-28] MEDS: METOPROLOL IR 25 MG TABLET 12.5 MG PO ×2 (08:46→21:01)
[2022-11-28] MEDS: ASPIRIN EC 81 MG TABLET PO (08:46)
[2022-11-28] MEDS: METHADONE 10 MG TABLET 30 MG PO (08:46)
[2022-11-28] MEDS: SODIUM CHLORIDE 0.9% FLUSH 10 ML IV ×2 (08:46→21:01)
--- NOTE | 2022-11-28 09:55 | PT.IPTN ---
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 Number of SCHOOL INSPECTOR Visits 2 Physical Therapy Visit Comments Patient Comments Pt agreed to PT. M4 PT-IP Mobility and Gait Start: 11/26/22 08:53 Freq: NEEDED Status: Active Protocol: Document 11/28/22 10:41 TS (Rec: 11/28/22 10:58 TS [id number]) PT-Bed Mobility Assessment Supine to Sit Supine to Sit Standby Assistance,1 Person Assistance,Head of Bed Elevated Scooting Scooting to Edge of Bed Standby Assistance PT-Transfer Assessment Sit to and From Stand Sit to and from Stand Contact Guard Assistance,1 Person Assistance,Use of Upper Extremities Equipment Transfer Assistive Device Gait Belt,Front Wheeled Walker Orthotic/Prosthetic Devices or Brace: No Transfers Transfer Destination Chair Transfer Technique Ambulated Transfer Ability Level of Assist Contact Guard Assistance,1 Person Assistance,Use of Upper Extremities Comments Mobility Comments Supine to sit SBA with HOB elevated and scooted to EOB. Pt was CGA for sit to stand has some retroleaning, used LEs against bed to support self. Pt ambulated ~10' to window and back to bed CGA, has unsteady gait and uncoordinated movements with FWW. Pt requested to use urinal sitting EOB, pt sat EOB for ~5mins. Pt agreed to sit in chair. Stand step pivot to chair CGA with FWW. Pt was left in chair with call light nearby, chair alarm on, nursing notified. Gait Assessment Gait Gait Assistance Required: Contact Guard Assist,1 Person Assist Distance (Feet) 10 Able to Maintain Weight Bearing Status Yes During Gait Assistive Devices Assistive Device Gait Belt,Front Wheeled Walker Orthotic/Prosthetic Devices or Brace: No Gait Deviations General Gait Pattern Decreased Stride Length, Decreased Feet Clearance, Narrow Based Gait Factors Limiting Gait Function Factors Limiting Gait Function Decreased Strength, Incoordination,Poor Balance, Poor Safety Awareness Comments Gait Comments Unsteady gait with FWW and uncoordinated movements with FWW, is impulsive. PT-Balance Assessment Sitting Balance and Reactions Static Sitting Balance Ability Fair Dynamic Sitting Balance Ability Fair Standing Balance and Reactions Static Standing Balance Ability Good Dynamic Standing Balance Ability Fair Device Used FWW M5 PT-IP Objective Assessments Start: 11/26/22 08:53 Freq: NEEDED Status: Active Protocol: Document 11/26/22 08:35 MB (Rec: 11/26/22 09:11 MB [id number]) Orientation Orientation/Cognition Level of Alertness Confusional State Orientation Name,Birthday Safety Awareness Decreased Safety Awareness Memory Description Short Term Impaired,Welding Supervisor Impaired Comments Pt is very confused about situation, location, date. He states that he is in [place] twice, even after cued to [place], [place]. He is unclear about living situations, his daughter's age , PLOF questions and has no awareness of new abdominal cancer dx when PT asks him if he remembers what he might have talked with the providers about regarding his abdomen. He perseverates on getting his daughter out of [facility] in [facility], that he has two automobiles and will keep driving. Gross Range of Motion Lower Extremity ROM Impairments Pt does not follow range or strength cues well. Strength Comments Strength Comments Pt does not follow MMT cues well. B ankle DF appears WNLs and his proximal legs require use of his hands to move and he has decreased muscle mass. He has abdominal distention and B ankle and foot edema. Coloring of hands and fingernails is also abnormal: purplish poon in appearance. Coordination Assessment Assessment Coordination Comments Pt does not respond well to coordination tasks Sensation Assessment Comments Sensation Comments Pt does not respond well to sensory tasks M6 PT-IP Treatment Start: 11/26/22 08:53 Freq: NEEDED Status: Active Protocol: Document 11/28/22 10:41 TS (Rec: 11/28/22 10:58 TS [id number]) Physical Therapy Treatment Education Education Provided Safety M7 PT-IP Assessment and Plan Start: 11/26/22 08:53 Freq: NEEDED Status: Active Protocol: Document 11/28/22 10:41 TS (Rec: 11/28/22 10:58 TS [id number]) PT Summary Assessment and Plan Potential Rehabilitation Potential Poor Summary Impairments Balance,Cognition,Bed Mobility ,Transfers,Gait,Activity Tolerance Progress Towards Goals Slow Progress due to Medical Issues Assessment Summary Pt continues to have some confusion, gives answers to questions that do not make sense. H continues to be SBA for all bed mobility. He is impulsive with his movements and uncoordinated with FWW, pt picks up FWW and requires cues to keep on floor. He ambulated ~10'CGA with unsteady gait but has no LOB. PT continues to recommend SNF vs Home 24/7 assist. Pt may need FWW for home use. Goals Bed Mobility Goal Standby Assistance Transfer Goal Standby Assistance,Front Wheeled Walker Gait Goal Standby Assistance,Front Wheel Walker Gait Distance 75 Other Goals Pt will ascend and descend 2 steps with rail to allow d/c home with 24 hour assistance, if appropriate. Frequency of Treatment Frequency Of Treatment Once a Day Treatment Plan Physical Therapy Treatment Plan Bed Mobility Training,Transfer Training,Gait Training, Balance Retraining,Discharge Planning Weight Bearing Status Weight Bearing Status Weight Bear as Tolerated Recommendations To Nursing Amount of Assist Needed 1 Person Assist Discharge Recommendations PT Discharge Recommendations Home with 24/7 Assist Available,Home vs SNF Other Discharge Recommendations One note states that palliative/hospice is being considered for pt. Transportation Needs at Discharge Private Vehicle
[2022-11-28 11:37] LABS: Add Manual Diff / Slide Review NO; Basophils Absolute Auto 100 /uL (0-100); Basophils Percent Auto 0.5 % (0-2); Eosinophils Absolute Auto 0 /uL (0-450); Eosinophils Percent Auto 0.2 % (2-4); Hematocrit 38.5 % (41-53); Hemoglobin 12.6 g/dL (13.5-17.5); Lymphocytes Absolute Auto 1200 /uL (1100-4500); Lymphocytes Percent Auto 9.4 % (25-40); Mean Corpuscular HGB Conc 32.7 % (30-36); Mean Corpuscular Hemoglobin 25.9 PG (26-34); Mean Corpuscular Volume 79.3 fL (80-100); Monocytes Absolute Auto 900 /uL (0-900); Monocytes Percent Auto 7.2 % (3-14); Neutrophils Absolute Auto 10900 /uL (1500-7000); Neutrophils Percent Auto 82.7 % (50-75); Platelet Count 100 X10^3/uL (150-400); Red Blood Cell Count 4.85 X10^6/uL (4.5-5.9); Red Cell Distribution Width 16.7 % (11.6-14.8); White Blood Cell Count 13.1 X10^3/uL (4.5-11.0)
--- NOTE | 2022-11-28 12:00 | OT.IP.EVAL ---
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 Mobility and Gait Unable to obtain from patient. No family present. Per chart, pt lives alone with his 15year old daughter so it is likely that pt was Mod I or Ind in his mobility recently. Activities of Daily Living and IADL's Unable to obtain from patient. No family present. Per chart, pt lives alone with his 15 year old daughter so it is likely that pt was IND or MOD I in his ADLs recently. Social History Household Members children Living Arrangements House Additional Social History Comment Unable to obtain information of home set up as pt is not a reliable historian. M2 OT-IP Current Condition Start: 11/28/22 15:39 Freq: Status: Active Protocol: Document 11/28/22 15:40 CGR (Rec: 11/28/22 16:06 CGR [id number]) Occupational Therapy Current Condition Current Condition Evaluation Date 11/28/22 Treatment Diagnosis new onset abdominal CA, NE Diagnosis Onset Date 11/26/22 M3 OT- IP Subjective and Pain Start: 11/28/22 15:39 Freq: Status: Active Protocol: Document 11/28/22 15:40 CGR (Rec: 11/28/22 16:06 CGR [id number]) OT- Subjective Occupational Therapy Visit Type Type Initial Evaluation Visit Start Time 11:28 Visit Stop Time 12:00 Total Visit Minutes 32 Notes Per MD, please perform SLUMS M4 OT- IP ADL's Start: 11/28/22 15:39 Freq: Status: Active Protocol: Document 11/28/22 15:40 CGR (Rec: 11/28/22 16:06 CGR [id number]) OT IHM-[facility] General Evaluation Self-Feeding Ability Independent Comments OT Self-Feeding Comments Lunch delivered at end of session. Pt able to open containers and bring food to mouth on utensils OT ADL-Grooming General Evaluation Grooming Ability Standby Assistance Comments OT Grooming Comments washed hands at sink OT ADL-Oral Care General Eval Oral Care Ability Standby Assistance Areas of Assistance Brushing Teeth,Retrieving/Set- Up of Items Comments Oral Care Comments brushed teeth standing at sink OT ADL-Dressing General Eval Lower Body Dressing Ability Independent Areas Needing Assistance Socks Comments OT Dressing Comments seated in chair, appears easy even with swollen feet. OT ADL-Toileting General Evaluation Toileting Ability Standby Assistance Comments OT Toileting Comments standing to urinate. Pt ambulated into the bathroom and initially turned towards the C that was sitting in the shower. OT ADL-Bathing Comments OT Bathing Comments not performed M5 OT- IP IADL's Start: 11/28/22 15:39 Freq: Status: Active Protocol: Document 11/28/22 15:40 CGR (Rec: 11/28/22 16:06 R [id number]) OT-Instrumental Activities of Daily Living Deficits IADL Deficits Identified Deficits Home Safety Awareness Awareness of Need for Assistance at Home Decreased Awareness Ability to Problem Solve Emergency Unable to Problem Solve Situations Medication Management Medication Management Comments Concerns regarding pt's ability to perform Money Management Money Management Comments Concerns regarding pt's ability to perform Meal Preparation Meal Preparation Comments Concerns regarding pt's ability to perform Evaluator Transfer Students Evaluator Transfer Students Comments Concerns regarding pt's ability to perform Driving Driving Concerns Identified Regarding Safety Driving Comments 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 M6 OT- IP Functional Cognition Start: 11/28/22 15:39 Freq: Status: Active Protocol: Document 11/28/22 15:40 CGR (Rec: 11/28/22 16:06 CGR [id number]) Cognitive Factors Limiting Selfcare Function Cognitive Ability Level of Alertness Alert,Confusional State Patient Orientation Name,Year Attention Span Ability Unable to Focus,Unable to Sustain Attention Ability to Follow Commands Able to Follow One Step Commands with Increased Time, Able to Follow One Step Commands with Repetition Cognitive Tests [facility] Pt participated in the SLUMS on this date with a score of 8 /30. He was able to state the day of the week, the year and the state we are in. He remembered 1/5 items, was unable to perform simple math, named 6 animals in 1 minute, was unable to perform any backwards sequencing of numbers, earned no points for the clock exercise, identified the largest item of 3 but then marked the square with an x rather than the triangle. He was able to answer 1 of the 4 listening comprehension questions. Cognitive Comments Cognitive Assessment Comments Pt presents with a profound decline to his cognitive state . Per MD and nursing, likely a combination of poor liver function and possible mets to the brain. OT- Vision and Hearing OT- Hearing Assessment OT- Hearing Assessment WFL OT- Vision Assessment Visual Acuity WFL Visual Attentiveness WFL Occular Pursuits WFL Visual Convergence WFL M7 OT- IP Mobility and Balance Start: 11/28/22 15:39 Freq: Status: Active Protocol: Document 11/28/22 15:40 CGR (Rec: 11/28/22 16:06 CGR [id number]) OT-Transfer Assessment Sit to and From Stand Sit to and from Stand Moderate Assistance,1 Person Assistance Transfers Transfer Ability Minimal Assistance Technique Transfer Destination Chair,Toilet Transfer Technique Stand Step Pivot Devices Transfer Assistive Devices Gait Belt,Front Wheeled Walker Comments Mobility Comments Pt needed mod a for sit to stand from chair the ambulated to the bathroom for toielting . Pt initially turned towards the BSC rather than the toilet and was redirected. He then ambulated to the sink for ADLs . OT- Gait Assessment Gait Gait Assistance Required: Minimum Assistance Assistive Devices Assistive Device Gait Belt,Front Wheeled Walker Comments Gait Ability Comments mobility around the room. OT- Balance Assessment Sitting Balance and Reactions Static Sitting Balance Ability Good Dynamic Sitting Balance Ability Good Standing Balance and Reactions Static Standing Balance Ability Fair Dynamic Standing Balance Ability Poor M8 OT- IP Objective Assessments Start: 11/28/22 15:39 Freq: Status: Active Protocol: Document 11/28/22 15:40 CGR (Rec: 11/28/22 16:06 CGR [id number]) OT Gross Range of Motion Upper Extremity Range of Motion Assessment Within Functional Limits OT Strength Upper Extremity Strength Assessment Within Functional Limits Comments Strength Comments shlds 3+/5, arms and hands 4/5 OT- Coordination Assessment Upper Extremity Finger to Nose Test Bilateral UE Impaired Finger Tapping Test Bilateral UE Impaired OT-Muscle Tone Assessment Muscle Tone WNL Yes OT Sensation Assessment Edema Edema Present Edema Comments BLE M9 OT- IP Assessment and Plan Start: 11/28/22 15:39 Freq: Status: Active Protocol: Document 11/28/22 15:40 CGR (Rec: 11/28/22 16:06 CGR [id number]) OT Summary Assessment and Plan Potential Rehabilitation Potential Poor Analytic Complexity at Evaluation High Summary OT Impairments Strength,Balance,Coordination, Functional Cognition, Functional Mobility,Self- Feeding,Grooming,Dressing, Toileting,Bathing,Toilet Transfers,Shower Transfers, Activity Tolerance Progress Towards Goals Slow Progress due to Medical Issues Assessment Summary Pt presents as a high complexity evaluation s/p admit for new onset of abdominal CA and possible NE. Pt is confused and scored an 8 /30 on the SLUMS. He required min a for mobility around the room and mod a for sit to stand from the chair. Pt will need 24 hour care at this time if discharged. He is not likely appropriate for SNF given his dx and life expectancy. Home wth 24 hour care would likely be in the patients best interest if possible. Goals Self-Feeding Goal Independent Grooming Goal Independent Dressing Goal Independent Toileting Goal Independent Bathing Goal Minimal Assistance Toilet Transfer Goal Minimal Assistance Shower Transfer Goal Moderate Assistance Days to Meet Goals 10 Frequency of Treatment Frequency Of Treatment Once a Day Treatment Plan OT Treatment Plan ADL Training,Functional Cognition Training,Functional Mobility,Patient/Family Education,Discharge Planning Other Treatment Recommendations and Next shower if able Treatment Focus Discharge Recommendations OT Discharge Recommendations Home with 24 Assist Available Transportation Needs at Discharge Private Vehicle
--- NOTE | 2022-11-28 12:56 | P.PN_ITS ---
Subjective Subjective Interval history: Denies pain, sitting in chair. No dyspnea. Did poorly on Speec cognitive evaluation. Exam Vital Signs (past 8 hours): - 11/28/22 08:00 Temperature 97.3 F L Pulse Rate 80 Respiratory Rate 17 Blood Pressure 152/82 H Pulse Oximetry 96 Oxygen Flow Rate 0 Oxygen Delivery Method Room Air Oxygen Flow Rate 0 Narrative Exam Narrative: NAD, cachectic, oriented to person, place, and year. Symmetric pupils, EOMI Lungs clear Heart regular without murmur Abdomen distended and non-tender No leg edema Objective Labs 11/28/22 11:25 11/26/22 08:34 Labs: Laboratory Results - last 24 hr 11/26/22 11/28/22 08:34 11:25 WBC 13.1 H RBC 4.85 Hgb 12.6 L Hct 38.5 L MCV 79.3 L MCH 25.9 L MCHC 32.7 RDW 16.7 H Plt Count 100 L Neut % (Auto) 82.7 H Lymph % (Auto) 9.4 L [place] % (Auto) 7.2 Eos % (Auto) 0.2 L Baso % (Auto) 0.5 Neut # (Auto) 60276 H Lymph # (Auto) 1200 [place] # (Auto) 900 Eos # (Auto) 0 Baso # (Auto) 100 CA 19-9 Antigen 47 H PFSH Social History household members: children Smoking Status: Former smoker alcohol intake: former Assessment & Plan Assessment & Plan narrative: 1. RADHA, POAI. Continue IVF and follow. 2. New diagnosis of metastatic cancer of unknown primary (peritoneal and liver lesions with ascites). POA. Patient initially declined work up and asked for hospice. Now unsure. Will re offer paracentesis. 3. Opiate dependence, POAS. Continue methadone 30 daily. 4. Elevated troponin, POA. Follow clinically. No further HERRMANN at this point. Simple medical therapy with ASA and metoprolol. 5. Cognitive impairment, POA. Plans: -Hospice informational today -CT brain rule out lesions (not able to do an MRI) -meet with family (daughter, who is 15 and neighbor). Ongoing level of care discussions. Time Spent With Patient Time with patient: 30 to 49 minutes with 50% spent counseling/coordinating care
--- NOTE | 2022-11-28 15:52 | CM.DPC ---
DCP Continued: MACHINE OPERATOR HOP PICKER reviewed EMR. Per OT, current slums score is 8. Per provider, patient will be getting a CT scan of his head today to try and attempt to see what could be impacting him cognitively. MACHINE OPERATOR HOP PICKER entered room. Patient was chatty as normal, however, occasionally said statements that did not make sense to this author. Patient reported he does not want private caregivers at this time. Patient reported he is still open to hospice. Patient reported that he would like his neighbor Oscar ([phone]) to be the one to make medical decisions for him in the event that he is unable to make them for himself. MACHINE OPERATOR HOP PICKER called [facility] to inquire if patient has a [employer] complex case manager/application pending. Heather reported no complex case manager or application currently. MACHINE OPERATOR HOP PICKER introduced patient to Sage from [facility]. Sage began informational meeting with patient. MACHINE OPERATOR HOP PICKER spoke with neighbor Oscar ([phone]) and daughter Vijaya in the hallway. MACHINE OPERATOR HOP PICKER acted within area of competency and answered questions to the best of ability. Oscar and Vijaya join in on hospice conversation with patient. Post meeting, Sage called MACHINE OPERATOR HOP PICKER back to room. Patient reported he would like to go home with hospice. Patient and Oscar reported they have questions for the doctor. MACHINE OPERATOR HOP PICKER updated provider. He said he would go talk to patient and family. CM Geophysics Teacher Mariah faxed over referral to [facility]. Liz Wood from [facility] called with some questions re: height/weight/SSN. MACHINE OPERATOR HOP PICKER answered to best of ability. Soonest hospice can open is Thursday at [address]. [facility] accepted patient and will plan on delivering a hospital bed/walker. central supply clerk called MACHINE OPERATOR HOP PICKER to report they will be moving him to room 224. Plan: patient will d/c home with hospice when able. Hospice will open Thursday morning. CM team will continue to follow closely for transportation needs. May be able to transport with neighbors. CM team will continue to follow closely. YUE Nur
[2022-11-28 16:00] VITALS: BP 148/101; PULSE 96; RESP 17; TEMP 36.2; O2SAT 95
[2022-11-28 19:36] VITALS: PULSE 88; RESP 18
[2022-11-28 20:24] VITALS: BP 152/88; PULSE 84; RESP 20; TEMP 36.6; O2SAT 96
--- NOTE | 2022-11-28 22:51 | PC.NURSE ---
Addendum entered by Alea Hawkins R.N. 11/29/22 00:41: ED nurse attempted to place IV x2 via ultrasound guided placement which was unsuccessful. Pt. refused a third attempt. Discussed need for possible IO insertion for medication management in the event of an arrest given full code status. Original Note: IV PIV site removed due to catheter being kinked, unable to rethread and continue to use. Attempted to start new site x2 which was unsuccessful. Second RN attempted to stat new site x1 which was unsuccessful. Requested assistance with ultrasound guided placement approx. [phone].
[2022-11-29 04:00] VITALS: BP 131/72; PULSE 67; RESP 17; TEMP 36.1; O2SAT 95
[2022-11-29 04:58] LABS: Add Manual Diff / Slide Review NO; Basophils Absolute Auto 0 /uL (0-100); Basophils Percent Auto 0.4 % (0-2); Eosinophils Absolute Auto 0 /uL (0-450); Eosinophils Percent Auto 0.3 % (2-4); Hematocrit 34.7 % (41-53); Hemoglobin 11.6 g/dL (13.5-17.5); Lymphocytes Absolute Auto 1300 /uL (1100-4500); Lymphocytes Percent Auto 12.7 % (25-40); Mean Corpuscular HGB Conc 33.4 % (30-36); Mean Corpuscular Hemoglobin 25.9 PG (26-34); Mean Corpuscular Volume 77.6 fL (80-100); Monocytes Absolute Auto 800 /uL (0-900); Monocytes Percent Auto 7.7 % (3-14); Neutrophils Absolute Auto 7800 /uL (1500-7000); Neutrophils Percent Auto 78.9 % (50-75); Platelet Count 120 X10^3/uL (150-400); Red Blood Cell Count 4.47 X10^6/uL (4.5-5.9); Red Cell Distribution Width 16.5 % (11.6-14.8); White Blood Cell Count 9.8 X10^3/uL (4.5-11.0)
[2022-11-29] MEDS: METOPROLOL IR 25 MG TABLET 12.5 MG PO ×2 (08:12→20:35)
[2022-11-29] MEDS: METHADONE 10 MG TABLET 30 MG PO (08:13)
[2022-11-29] MEDS: ASPIRIN EC 81 MG TABLET PO (08:13)
[2022-11-29 09:26] VITALS: BP 129/83; PULSE 77; RESP 16; TEMP 36.4; O2SAT 90
--- NOTE | 2022-11-29 10:14 | PT.IPTN ---
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) Acute kidney failure, unspecified (11/26/22) Surgery Performed Operation Date: 11/26/22 10:15 <No data on this case meets the specified criteria> Physical Therapy Treatment Note M2 PT-IP Current Condition Start: 11/26/22 08:53 Freq: NEEDED Status: Active Protocol: Document 11/26/22 08:35 MB (Rec: 11/26/22 09:11 MB [id number]) Physical Therapy Current Condition Current Condition Evaluation Date 11/26/22 Treatment Diagnosis Encephalopathy in setting of new dxs of metastatic abdominal CA to liver Onset Date Unknown M3 PT-IP Subjective Start: 11/26/22 08:53 Freq: NEEDED Status: Active Protocol: Document 11/29/22 10:12 AB (Rec: 11/29/22 10:13 AB [id number]) Subjective Physical Therapy Visit Type Type Administrative Note Notes Per rounds meeting/hospitalist : pt going to hospice care. No further PT intervention needs at this time. ok to d/c PT. M7 PT-IP Assessment and Plan Start: 11/26/22 08:53 Freq: NEEDED Status: Active Protocol: Document 11/29/22 10:12 AB (Rec: 11/29/22 10:13 AB [id number]) PT Summary Assessment and Plan Frequency of Treatment Frequency Of Treatment Discharge
--- NOTE | 2022-11-29 15:27 | CM.DPNOTE ---
Addendum entered by Jennifer Vora MSW 11/29/22 16:42: ADD: 16 yo Ruchi admits she has struggled with dark moods. Assessed for suicidal ideation, she admits she has Macabre thoughts at times about what it () would be like or feel like further states that she has never seriously thought about killing herself, has no plan or intention. Denies cutting or self inflicted harm CPS report completed by phone. Ref # [id number] Original Note: DCP Note Reviewed chart. 72 yo M w/newly diagnosed metastatic cancer of unknown primary, per prog note ..peritoneal and liver lesions with ascites, (possible brain involvement?). Patient with a SLUMS of 8, non-sensical speech per RN Luis, MRI could not be completed per notes Today, this INSTRUCTOR OF SPANISH met with patient's 15 yo daughter, Ruchi OLMSTEAD 10/29/2007 (just turned 15yo) cell P# [phone] and neighbor Oscar Kevin P [phone] (land line) cell P [phone]. Oscar's 5 yo son Blade was also present Oscar's address : [address] [place] [address] Ruchi and Oscar attempted conversation with patient at bedside about paying bills, checking account, finances, etc. and patient did not respond appropriately. Patient does not have the capacity to make decisions for himself and has no DPOA. There are no known living family members and Ruchi's mom has never been in the picture per Oscar Met alone with Ruchi. Ruchi sounds older than stated age, has pressured speech... this INSTRUCTOR OF SPANISH suspects autistic spectrum disorder. according to our conversation: Ruchi states she feels safe living with Oscar, his and their 5 yo son Blade and she hopes to stay with them indefinitely. Ruchi has known this family for 3 years since moving from [place] to [facility] in [place]. Ruchi has been home schooled the entirety of her life through an online platform and is currently not active in any sports, latter-day community or other social community other than that of [facility] neighbors Ruchi denies any hx of sexual, physical or emotional abuse from her father(patient) however admits there has been unintentional neglect r/t patient's conspiracy theories, distrust of organized groups and/or institutions and as of recently, patient's mental deterioration ---> exhibited in patient's confusion, visual hallucinations and inability to perform ADLs indp... Thus leaving Ruchi to perform all maintenance of their home, shopping, cleaning and feeding herself (Oscar has been cooking Ruchi meals) Ruchi speaks very eloquently about her upbringing and current unique situation and says she reads a lot. Ruchi tearful when talking about her Dad being diagnosed with end stage cancer, and explains he has always been stubborn and never wanted to go to the doctor. Ruchi admits she also has not been to the doctor for many years sixth grade I think Ruchi talks about the current flea infestation, per Ruchi and Oscar, r/t stray cats that patient let in. Ruchi says I just can't seem to get rid of them, no matter what I do Oscar hopes to get an medicaid nurse to assist soon Spoke then with Ruchi and Oscar together to review some information: Both had understood hospice as a place that patient was going to live. Oscar very concerned about patient returning home, which seems reasonable given the above information If patient were to discharge home, he would require 24 hr assist r/t his cognitive impairment. The only available support at this time is neighbor Oscar, who cares for his 5 yo son and now 16 yo Ruchi. Oscar is working on enrolling Ruchi in the [employer] [employer] [facility] [employer] for her Freshman year in HS Explained to this family that it sounds as if facility placement with hospice would be more appropriate than a discharge home and Oscar agreed. If additional help becomes available this can be reconsidered. Oscar and daughter Ruchi agreeable to any facility that can provide care to patient. Finances unknown and this family working diligently to gain access to patient's bank account to pay bills etc Further explained that a CPS report would be filed, Oscar states understanding and that I really hope she doesn't end up in foster care, I don't want that for her Suggested a conference tomorrow at 1300 with this family, Dr Johnson and INSTRUCTOR OF SPANISH on schedule, Ariana to discuss plan further and educate family re next steps Plan: Suspect facility placement with Hospice/comfort care will be the safest DCP however unsure what is available to patient with AARP MCR/WILLIAM and finances unknown at this point CM team will need to follow closely for coordination of this DCP YUE Mtz
[2022-11-29 17:22] VITALS: BP 140/82; PULSE 75; RESP 17; TEMP 36.3; O2SAT 100
--- NOTE | 2022-11-29 17:25 | PM.PN.1 ---
Subjective Subjective Interval history: Resting comfortably in bed. Delusional but pleasant. Getting ready to eat his dinner. Exam Vital Signs (past 8 hours): - 11/29/22 09:26 11/29/22 17:22 Temperature 97.5 F L 97.3 F L Pulse Rate 77 75 Respiratory Rate 16 17 Blood Pressure 129/83 140/82 Pulse Oximetry 90 L 100 Oxygen Flow Rate 0 Oxygen Delivery Method Room Air Oxygen Flow Rate 0 Narrative Exam Narrative: NAD, cachectic, oriented to person and place Symmetric pupils, EOMI Lungs clear Heart regular without murmur Abdomen distended and non-tender Pedal edema 2+ Objective Labs 11/29/22 04:22 11/26/22 08:34 Labs: Laboratory Results - last 24 hr 11/29/22 04:22 WBC 9.8 RBC 4.47 L Hgb 11.6 L Hct 34.7 L MCV 77.6 L MCH 25.9 L MCHC 33.4 RDW 16.5 H Plt Count 120 L Neut % (Auto) 78.9 H Lymph % (Auto) 12.7 L [place]th[place]omew % (Auto) 7.7 Eos % (Auto) 0.3 L Baso % (Auto) 0.4 Neut # (Auto) 7800 H Lymph # (Auto) 1300 [place]th[place]omew # (Auto) 800 Eos # (Auto) 0 Baso # (Auto) 0 PFSH Social History household members: children Smoking Status: Former smoker alcohol intake: former Assessment & Plan Assessment & Plan narrative: 1. Acute kidney injury: Present on admission. Follow labs tomorrow. ? 2. 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 ? ? 3. Metastatic cancer to liver: acute, possibly pancreatitic origin ? ? ? 4. Hospice referral has been placed through [employer] CEA normal, CA [phone] 5. Bilateral pitting edema with pleural effusions Likely CHF related, but patient does not want any treatment, echo cancelled 6. RADHA Likely CHF related, follow labs 7. chronic methadone use -continue methadone with slightly increased dose from regular dose 8. Elevated troponin. Has been downtrending. Likely cardiac strain. 9. Hypertension. Continue patient's regular medication and follow clinically. Inpatient visit 40 minutes. Greater than 50% of time spent in counseling and coordinating care with nursing and [employer]. Code status. Currently full code, we will have further discussion with daughter and patient tomorrow. DVT prophylaxis: Heparin 5000 units subQ b.i.d. Surrogate decision maker: Only family member is daughter who is 15 named Vijaya Reyes Continue to follow clinically and labs
[2022-11-29 20:00] VITALS: BP 136/77; PULSE 78; RESP 19; TEMP 36.9; O2SAT 97
[2022-11-29] MEDS: SODIUM CHLORIDE 0.9% FLUSH 10 ML IV (20:36)
[2022-11-30 04:00] VITALS: BP 126/60; PULSE 65; RESP 17; TEMP 36.2; O2SAT 97
[2022-11-30 04:54] LABS: Add Manual Diff / Slide Review NO; Basophils Absolute Auto 0 /uL (0-100); Basophils Percent Auto 0.5 % (0-2); Eosinophils Absolute Auto 100 /uL (0-450); Eosinophils Percent Auto 0.8 % (2-4); Hematocrit 37.2 % (41-53); Hemoglobin 12.2 g/dL (13.5-17.5); Lymphocytes Absolute Auto 1000 /uL (1100-4500); Mean Corpuscular HGB Conc 32.7 % (30-36); Mean Corpuscular Hemoglobin 25.7 PG (26-34); Mean Corpuscular Volume 78.7 fL (80-100); Monocytes Absolute Auto 500 /uL (0-900); Monocytes Percent Auto 6.5 % (3-14); Neutrophils Absolute Auto 6300 /uL (1500-7000); Neutrophils Percent Auto 79.2 % (50-75); Platelet Count 101 X10^3/uL (150-400); Red Blood Cell Count 4.73 X10^6/uL (4.5-5.9); Red Cell Distribution Width 17.1 % (11.6-14.8); White Blood Cell Count 7.9 X10^3/uL (4.5-11.0)
[2022-11-30 05:11] LABS: Alanine Aminotransferase 49 IU/L (<50); Albumin 2.5 g/dL (3.5-5.0); Albumin Globulin Ratio 0.9 (1.0-2.8); Alkaline Phosphatase 195 U/L (38-126); Aspartate Aminotransferase 84 IU/L (17-59); BUN Creatinine Ratio 34.3 (6-22); Bilirubin Total 0.4 mg/dL (0.2-1.3); Blood Urea Nitrogen 46 mg/dL (9-20); C-Reactive Protein Quant 6.8 mg/dL (<1.0); Calcium 9.8 mg/dL (8.4-10.2); Carbon Dioxide 21 mmol/L (22-32); Chloride 107 mmol/L (98-107); Estimated Glomerular Filt Rate 57 mL/min (>60); Globulin 2.9 g/dL (1.7-4.1); Glucose 100 mg/dL (80-110); HEMOLYSIS < 15 (0-50); Potassium 3.7 mmol/L (3.4-5.1); Sodium 136 mmol/L (137-145); Total Protein 5.4 g/dL (6.3-8.2)
[2022-11-30] MEDS: METOPROLOL IR 25 MG TABLET 12.5 MG PO ×2 (08:36→21:09)
[2022-11-30] MEDS: FUROSEMIDE 20 MG TABLET PO (08:36)
[2022-11-30] MEDS: ASPIRIN EC 81 MG TABLET PO (08:37)
[2022-11-30] MEDS: METHADONE 10 MG TABLET 30 MG PO (08:37)
[2022-11-30] MEDS: lisinopriL 5 MG TABLET PO (08:38)
[2022-11-30] MEDS: ENOXAPARIN 40 MG/0.4 ML SYRINGE SUBCUT (08:38)
[2022-11-30] MEDS: SODIUM CHLORIDE 0.9% FLUSH 10 ML IV (10:00)
[2022-11-30 12:02] VITALS: BP 128/72; PULSE 68; RESP 16; TEMP 36.6; O2SAT 98
--- NOTE | 2022-11-30 14:12 | P.PN_ITS ---
Subjective Subjective Interval history: Patient states he is feeling fine and that is pain is adequately controlled. However he is confused and thinks he is in [place]. Has been dreaming a lot about his mother. Exam Vital Signs (past 8 hours): - 11/30/22 12:02 Temperature 98 F Pulse Rate 68 Respiratory Rate 16 Blood Pressure 128/72 Pulse Oximetry 98 Oxygen Flow Rate 0 Oxygen Delivery Method Room Air Oxygen Flow Rate 0 Narrative Exam Narrative: NAD, cachectic, oriented to person Symmetric pupils, EOMI Lungs clear Heart regular without murmur Abdomen distended and non-tender Pedal edema 2+ Objective Labs 11/30/22 04:43 11/30/22 04:43 Labs: Laboratory Results - last 24 hr 11/30/22 11/30/22 04:43 04:43 WBC 7.9 RBC 4.73 Hgb 12.2 L Hct 37.2 L MCV 78.7 L MCH 25.7 L MCHC 32.7 RDW 17.1 H Plt Count 101 L Neut % (Auto) 79.2 H Lymph % (Auto) 13.0 L Monona % (Auto) 6.5 Eos % (Auto) 0.8 L Baso % (Auto) 0.5 Neut # (Auto) 6300 Lymph # (Auto) 1000 L Monona # (Auto) 500 Eos # (Auto) 100 Baso # (Auto) 0 Sodium 136 L Potassium 3.7 Chloride 107 Carbon Dioxide 21 L BUN 46 H Creatinine 1.34 H Estimated GFR 57 L BUN/Creatinine Ratio 34.3 H Glucose 100 Calcium 9.8 Total Bilirubin 0.4 AST 84 H ALT 49 Alkaline Phosphatase 195 H C-Reactive Protein 6.8 H Total Protein 5.4 L Albumin 2.5 L Globulin 2.9 Albumin/Globulin Ratio 0.9 L PFSH Social History household members: children Smoking Status: Former smoker alcohol intake: former Assessment & Plan Assessment & Plan narrative: 1.? Acute kidney injury:? Present on admission.? Continues to be present with creatinine of 1.34 and GFR 57. Follow labs. ? 2.? 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 ? ? 3. Metastatic cancer to liver confirmed on CT. No lesions seen on CT of head. CTA of the chest showed findings are suspicious for lymphangitic carcinomatosis. : acute, possibly pancreatitic origin of primary cancer. ? ? ? 4. Hospice referral has been placed through [facility]... Still yet determine were hospice care will be provided CEA normal, CA 19-9 47 5. Bilateral pitting edema with pleural effusions Likely CHF related, but patient does not want any further investigation in regards to CHF, echo cancelled 6. RADHA Likely CHF related, follow labs 7. chronic methadone use -continue methadone with slightly increased dose from regular dose, currently 30 mg per day. Has oxycodone for breakthrough pain. 8. Elevated troponin.? Has been downtrending previously.? Likely cardiac strain. 9. Hypertension.? Continue patient's regular medication and follow clinically. Hypertension adequately controlled Code status.? Currently full code, we will have further discussion with daughter and patient tomorrow. DVT prophylaxis:? Heparin 5000 units subQ b.i.d. Surrogate decision maker:? Only family member is daughter who is 15 named Vijaya Reyes Continue to follow clinically and labs Time Spent With Patient Time with patient: 70 minutes or more, with 50% spent counseling/coordinating
--- NOTE | 2022-11-30 15:27 | CM.DPNOTE ---
Discharge Planning Note: Meeting with myself, Dr Bethea, patient's very mature 15-year-old daughter Ruchi and patient's neighbor/friend Oscar. (Refer to Tianna's note of 11/29/22 and Chuyita's 11/28 note for further and in depth info) Patient's mentation is questionable and he is generally not giving direct answers to questions. Only partially oriented, knows who Oscar and Ruchi are. Met first with Ruchi and Oscar privately in conference to discuss the following (and then we met in patient's room for remainder of meeting: Patient's diagnosis and probable prognosis and questions were answered. Educated Oscar and Ruchi about what Medicare pays for and doesn't. Educated regarding what Hospice provides and pays for. Discussed that if he goes to an assisted living facility it will have to be the patient who pays. Patient has Medicaid but unsure if he would qualify for assistance for [facility] costs; the patient owns his own him in [place]. Discussed that the only safe way for patient to be discharged back to his own home would be with 24/11 private caregivers with hospice vs KELLY with hospice. Oscar's works at [employer] as an RN and the preference would be to see if he could get in there. When asked, patient gave a possible ascent. Educated regarding finances and lowry of deputy prosecuting attorney. There is currently no access to his finances; Ruchi brought in his checkbook to get him to sign a check for $1,000.00 to pay the BRINA fees due tomorrow. Patient is avoiding signing check and is not making sense, Ruchi is able to communicate the best with him and is still asking him to sign the check while this DCP left the room. According to Oscar and Ruchi, the patient has no will and no lowry of deputy prosecuting attorney either for Healthcare or Finances. Discussed the implications of this and possible pathways to obtaining. A hospice referral to [facility] was done 11/28 and the nurse did an in person visit and plan was for open on 12/01 am with equipment delivery as well, however this does not seem feasible at this time. PLAN: Care management to follow closely: Continue to work with Monica regarding lowry of deputy prosecuting attorney/access to finances; work on [facility] referrals, Oscar prefers [facility] (see above) will need to send referral and call. Communicate with Hospice re discharge plan. ([facility] referral was done yesterday). Jodi Roy RN/DCP
--- NOTE | 2022-11-30 15:52 | CM.DPC ---
DCP Facility with Comfort Planning Per DCP Jodi after Care Conference today with MD in room, preference is referral to [facility] as informal DPOA neighbor/friend Oscar's is an RN at [facility]. SW called [facility] admissions and discussed pt situation and need for comfort and could be SNF or Assisted Living side and faxed referral to review and will follow up in the AM. SW also called [facility] and left msg with w/e triage staff that pt will not be discharging home tomorrow 12/01 and to call SW in the AM for update as pt likely not safe for home d/c. Plan: SW to follow in the AM with Oscar and family regarding [facility] review and if they have had the ability to access pt's bank statements although they do have pt's check book if needed as well and family plans to be bedside towards attempting DPOA/notary tomorrow. YUE Small
[2022-11-30 20:00] VITALS: BP 154/88; PULSE 94; RESP 18; TEMP 36.7; O2SAT 97
[2022-12-01 04:00] VITALS: BP 147/81; PULSE 83; RESP 20; TEMP 36.6; O2SAT 100
[2022-12-01 08:00] VITALS: TEMP 36.2
[2022-12-01] MEDS: METHADONE 10 MG TABLET 30 MG PO (08:09)
[2022-12-01 08:10] VITALS: BP 142/91; PULSE 100
[2022-12-01] MEDS: ASPIRIN EC 81 MG TABLET PO (08:10)
[2022-12-01] MEDS: lisinopriL 5 MG TABLET PO (08:10)
[2022-12-01] MEDS: FUROSEMIDE 20 MG TABLET PO (08:10)
[2022-12-01] MEDS: METOPROLOL IR 25 MG TABLET 12.5 MG PO ×2 (08:11→21:15)
[2022-12-01] MEDS: ENOXAPARIN 40 MG/0.4 ML SYRINGE SUBCUT (08:12)
--- NOTE | 2022-12-01 12:10 | P.PN_ITS ---
Subjective Subjective Interval history: Long discussion with the patient today and he is agreeable to a do not re suscitate status understanding that it will allow him to proceed with care that is suitable for him knowing that he has underlying cancer any does not have a prolonged time to live. He understands that being do not resuscitate means that if his heart stops or his breathing stops there will be the respect to him that the nursing staff we will just let it happen. He also understands that not having resuscitation for heart stoppage or for breathing stoppage we will allow him to proceed with suitable care for himself in the stage of life. Took him a while to understand and accept that this is the stage of life he is at but is agreeable to it. He is also concerned about his daughter and the fact that he probably has been angry with her a bit in the last couple of months his own confusion and not feeling well and he wants the best for her and for her to be taken care of well during this process of his life. Patient not having any new complaints. Exam Vital Signs (past 8 hours): - 12/01/22 08:10 12/01/22 08:00 12/01/22 09:00 Temperature 97.2 F L Pulse Rate 100 H Blood Pressure 142/91 H Oxygen Delivery Method Room Air Oxygen Delivery Method Room Air Oxygen Flow Rate 0 Narrative Exam Narrative: NAD, cachectic, oriented to person only Symmetric pupils, EOMI Abdomen distended Pedal edema 2+ Objective Labs 11/30/22 04:43 11/30/22 04:43 PFSH Social History household members: children Smoking Status: Former smoker alcohol intake: former Assessment & Plan Assessment & Plan narrative: 1.? Acute kidney injury:? Present on admission. ? 2.? 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 ? ? 3. Metastatic cancer to liver confirmed on CT.? No lesions seen on CT of head.? CTA of the chest showed?findings are suspicious for lymphangitic carcinomatosis. : acute, possibly pancreatitic origin of primary cancer. ? ? ? 4. Hospice referral has been placed through [facility]...? Still yet determine were hospice care will be provided CEA normal, CA 19-9 47 5. Bilateral pitting edema with pleural effusions Likely CHF related, but patient does not want any further investigation in regards to CHF, echo cancelled 6. RADHA Likely CHF 7. chronic methadone use -continue methadone with slightly increased dose from regular dose, currently 30 mg per day.? Has oxycodone for breakthrough pain. 8. Elevated troponin.? Was downtrending previously.? Likely cardiac strain. 9. Hypertension.? Continue patient's regular medication and follow clinically.? Hypertension adequately controlled Code status.? Do not resuscitate. Patient is agreeable to be given the respect that if his heart stops or his breathing stops that the natural course of events will occur. DVT prophylaxis:? Heparin 5000 units subQ b.i.d. Surrogate decision maker:? Only family member is daughter who is 15 named Vijaya Reyes
--- NOTE | 2022-12-01 13:20 | OT.IPNOTE ---
Pt and situation discussed in rounds. CM working on getting pt to a hospice facility and POA signed. Will hold today for CM needs and continue to follow but pt is likely no longer appropriate for OT services.
[2022-12-01 15:03] VITALS: RESP 27; O2SAT 98
--- NOTE | 2022-12-01 15:10 | CM.DPC ---
Addendum entered by YUE Small 12/01/22 15:44: ADD: Return call from [facility] Esthela confirming they can accept the pt and Hospice can have DME delivered tomorrow 12/02 to room 2A in the suites on their SHELTER side. Esthela will fax CM office pt's admission pwk to be completed. JUSTO called [facility] and updated Jocelyn who confirms DME was just ordered for delivery tomorrow and their RN not available for another intake tomorrow but the next day Wed 12/03 in the AM at [facility]. BF Addendum entered by YUE Small 12/01/22 15:18: ADD: JUSTO spoke to Anuradha at [facility] who confirms that pt only has Medicaid for medical under Medicare medical savings plan and has not been approved for any other Medicaid eligible services. Therefore pt's Comfort Care at a facility could not be covered by his current Medicaid and pt owns his house in [place] and likely over qualified for Medicaid LTC. JUSTO called [facility] to see if pt's Dtr Vijaya's report from the weekend screened in and was assigned to a [facility] SW. JUSTO received a call back from Aurora at [facility] [phone] who states she is filling in for the assigned [facility] worker who is out sick today but Aurora plans to attempt to see Charlie today either in the home or in her [facility] office and will call Oscar shortly. Aurora did not know if legally Dtr could sign financially or medically for the pt in the [facility]. BF Original Note: DCP Cont: had discussion with pt bedside about code status and pt agreeable with changing his code to DNR. Order placed in the computer. JUSTO called [facility] admissions Ty and discussed pt situation and she is in agreement that pt likely could benefit from SHELTER side and not needing SNF level of care and provided Esthela contact info [phone]. JUSTO spoke to Esthela at [facility] and she confirms she received pt's referral from Ty and will review to confirm they can meet his needs but that currently they only have a two bedroom unit available immediately but can then transition the pt to studio end of next week when available. Cost is a $2500 deposit and then around $5995 for the two bedroom plus care needs cost and $4190 for studio. They would like Hospice DME delivered prior to pt discharge. JUSTO called [facility] as they had pt's initial referral and had completed Info Visit bedside last week. [facility] confirms they could likely order DME today for delivery to [facility] tomorrow 12/02. JUSTO and CM Director Yulia met with pt's informal DPOA Oscar and updated on above and he remains in agreement that preference is [facility] either SNF or SHELTER side but if they cannot accept then would be agreeable with other referrals to [facility]. Oscar confirms that pt did sign his check yesterday for the [facility] fees for [facility] and Oscar then met bedside with pt and updated on above and the potential cost for [facility] with [facility] and pt stated he was agreeable with signing a check for [facility] payment for supportive care. Oscar confirms if pt discharges in the afternoon he could likely provide transport if needed but would be agreeable if [facility] could provide facility van for transport. JUSTO called [facility] Esthela and had to leave msg to confirm if they feel they can accept so [facility] can order DME today for delivery tomorrow and [facility] RN can likely open tomorrow Tu or Thu AM. Plan: JUSTO to follow closely for confirmation if [facility] side could accept with [facility] for hopeful discharge tomorrow 12/02. YUE Small
[2022-12-01 17:00] VITALS: BP 141/74; PULSE 77; RESP 19; TEMP 36.2; O2SAT 98
--- NOTE | 2022-12-01 17:46 | DIET.CONS2 ---
Dietary Inpatient Consultation Note Admission Date: 11/26/2022 04:44 Pt screened for LOS day 5 with low BMI. Pt with new dx terminal cancer and DNR discharging tomorrow with hospice. No nutrition needs identified due to circumstance. Diet: 11/26/22 Dinner Regular [General (Regular) Diet] Diet Modifications: Nutrition Percent Meal Consumed 25% 12/01/22 13:22 Percent Meal Consumed 25% 12/01/22 09:00 Percent Meal Consumed 100% 11/30/22 18:04 Percent Meal Consumed 75% 11/30/22 13:25 Percent Meal Consumed 100% 11/30/22 08:36 Electronically Signed by: Mabel Blum 12/01/22 17:46 Clinical Dietitian [address] [id number]
[2022-12-01 20:00] VITALS: BP 151/98; PULSE 94; RESP 19; TEMP 36.2; O2SAT 98
[2022-12-02 04:00] VITALS: BP 127/70; PULSE 70; RESP 15; TEMP 36.3; O2SAT 97
[2022-12-02 08:16] VITALS: BP 120/63; PULSE 80; RESP 17; TEMP 36.6; O2SAT 98
--- NOTE | 2022-12-02 08:34 | OT.IPNOTE ---
Discharge pt for OT services, pt to go on Hospice.
[2022-12-02] MEDS: lisinopriL 5 MG TABLET PO (09:58)
[2022-12-02] MEDS: ASPIRIN EC 81 MG TABLET PO (09:58)
[2022-12-02] MEDS: FUROSEMIDE 20 MG TABLET PO (09:58)
[2022-12-02] MEDS: METHADONE 10 MG TABLET 30 MG PO (09:59)
[2022-12-02] MEDS: METOPROLOL IR 25 MG TABLET 12.5 MG PO (10:00)
--- NOTE | 2022-12-02 10:06 | PM.DS.1 ---
History of Present Illness History of Present Illness Date Patient Seen: 12/02/22 Time Patient Seen: 10:07 Chief complaint: SOB Narrative: Per admitting provider, Alistair Arteaga is a 72-year-old male former smoker with history of hypertension presents with his daughter and a chief complaint of increasing fatigue and shortness of breath.? He has been having trouble for the past few weeks and it seems to have started when he was walking upstairs and became significantly short of breath.? He was seen and evaluated here a few weeks ago and found to have an acute kidney injury and CHF and was discharged with encouragement to follow-up.? He had contact with his primary care provider who has ordered an outpatient stress test and echocardiogram which is scheduled for 2 days now.? He denies dizziness or lightheadedness.? He is had poor appetite and states that now he is so short of breath he can not make it more than 4-5 feet without having to stop.? He denies any weight loss or weight gain.? He denies abdominal pain, diarrhea or constipation. Found to have diffuse peritoneal carcinomatosis and hepatic mets on CT abd/pelvis. Discharge Providers Provider Date of admission: 11/26/22 04:44 Discharge Date: 12/02/22 Primary care physician: Dylan Mims MD Consults: 11/26/22 08:10 Consult to Occupational Therapy Evaluate & Treat Comment: Physician Instructions: Evaluate and treat Consult to Physical Therapy Evaluate & Treat Comment: Physician Instructions: Evaluate and Treat 11/26/22 09:27 Consult to General Surgery Routine Comment: Consulting Provider: Cameron Erickson Reason for consultation: need biopsy of peritoneal carcinomatosis Has provider been notified: Yes 11/26/22 13:40 Consult to Dietitian, Adult Routine Comment: Reason For Exam: malnurised/NPO 11/28/22 13:50 Consult to Hospice Referral Routine Comment: Discharge provider: Sarkis Zaldivar DO Summary Hospital Course Discharge Diagnosis: 1.? Acute kidney injury:? Present on admission. ? 2.? Abdominal carcinomatosis:acute on presentation, etiology unclear ? ? ? 3. Metastatic cancer to liver confirmed on CT.? No lesions seen on CT of head.? CTA of the chest showed?findings are suspicious for lymphangitic carcinomatosis.: acute 4. Hospice referral 5. Bilateral pitting edema with pleural effusions 6. RADHA, improved 7. chronic methadone use 8. Probably myocardial injury or less likely NSTEMI 9. Hypertension., chronic Hospital Course: This is a 72 year old male with HTN, methadone use who presented with increasing fatigue and shortness of breath. He largely refused medical interventions after initial imaging showed metastatic cancer with abdominal carcinomatosis and multiple mets to the liver. He was treated initially with IV fluids for RADHA and troponins were monitored after they were elevated but began to downtrend. CA 19-9 was elevated but no obvious mass was noted on the pancreas. Etiology of this malignancy is not known, and patient refused further evaluation. After goals of care discussion, patient elected for hospice and stated he would not want to be resuscitated. He could not return home due to living conditions, though with care management assistance he was able to be transferred to assisted living on hospice. Time Spent with Patient Time spent: Greater than 30 minutes Exam Vital Signs (past 8 hours): - 12/02/22 04:00 12/02/22 08:16 Temperature 97.4 F L 97.8 F Pulse Rate 70 80 Respiratory Rate 15 17 Blood Pressure 127/70 120/63 Pulse Oximetry 97 98 Oxygen Flow Rate 0 Oxygen Delivery Method Room Air Oxygen Flow Rate 0 Narrative Exam Narrative: NAD, cachectic, oriented to person only Symmetric pupils, EOMI Abdomen distended Pedal edema 2+ Objective Labs 11/30/22 04:43 11/30/22 04:43 PFSH Social History household members: children Smoking Status: Former smoker alcohol intake: former Discharge Plan Discharge Plan Patient Disposition: Assisted Living Other facility: [facility] Provider Discharge Comment: 72 M admitted with metastatic cancer of unknown primary at this time, did not want to persue further evaluation for cancer or cardiac interventions. Elected for discharge on hospice, will transfer to assisted living at the time of discharge on hospice. Discharge orders & Medications Discharge Orders: Discharge (Order); Ordered 12/02/22 Ordered By: Sarkis Zaldivar Prescriptions: New oxycodone 5 mg Tablet 5 - 10 mg PO Q3H PRN (Reason: Pain, Moderate (4-6)) 7 Days Qty: 40 0RF metoprolol tartrate 25 mg Tablet 12.5 mg PO BID 30 Days Qty: 30 0RF methadone 10 mg Tablet 30 mg PO DAILY 7 Days Qty: 21 0RF Continued lisinopril 5 mg tablet 5 mg PO DAILY furosemide 20 mg tablet 20 mg PO DAILY Discontinued methadone 25 mg DAILY Follow up/Referrals: Dylan Mims MD [Primary Care Provider] - Discharge Health Status Precautions: Tully Diet/Activity/Treatments Diet: Diet as Tolerated and Regular Liquid consistency: Normal/Thin Food texture: Regular Activity: As tolerated with no restrictions Visit Report/Discharge Packet Instructions: DI for Prescription Opioid Use Stand Alone Forms: Patient Portal/API, Stroke Signs & Symptoms Discharge Data Primary Care Provider: Dylan Mims Discharges patient from system. Discharge Date/Time: 12/02/22 15:45
--- NOTE | 2022-12-02 11:38 | CM.DPC ---
Addendum entered by YUE Small 12/02/22 15:11: ADD: Oscar and his and pt's Dtr arrived bedside around 1445 and RN and SW updated them and answered questions and provided the d/c packet to give to [facility] staff and [employer]NER assisted getting pt down to POV to transport to [facility]. RN had completed report to Leah at [facility]. BF Addendum entered by YUE Small 12/02/22 13:31: ADD: SW confirmed [facility] has what she needs for pt to be admitted to their facility and provided the amount for deposit and room/care for pt's check amount. SW updated that the pwk, check, and methadone and oxycode have been filled and in a packet to come with pt. [facility] requests RN report to be called to her and SW provided to RN and updated and Oscar called to confirm he will arrive now around 1430. JUSTO called [facility] and requested they call [facility] directly to schedule admit time in the AM for Hospice. BF Original Note: DCP Discharge to LONG TERM with Hospice Per MD, pt remains stable to d/c to LONG TERM with Hospice and wrote discharge pwk and signed med list. JUSTO spoke to Jocelyn at [facility] and confirmed that DME to be delivered to [facility] today and their RN can do intake at [facility] at either 0800 or 0900. JUSTO faxed d/c summary and med list to [facility] to review. JUSTO called [facility] and confirmed DME to be delivered to [facility] between 0144-7201 today. JUSTO called Leah at [facility] [phone] and faxed brief admission pwk signed by MD along with signed med list, scripts, d/c summary and orders to review. [facility] confirms to have pt admitted this afternoon they would also need COVID swab and oxycodone filled. Leah also states pt's apt is unfurnished and will currently only have the DME delivered by Hospice and suggest family provide a bag of pt's personal belongings as well. [facility] does not have transport available for pt for their LONG TERM side. JUSTO took pt's methadone and oxy scripts down to [facility] along with facesheet and insurance info and they will run his coverage and fill the prescriptions prior to pt d/c. JUSTO called Oscar and updated on above and he remains in agreement and plans to go to pt's home with pt's Dtr Vijaya to pack a bag of personal belongings and then arrive to the hospital around 1400 to transport pt to [facility]. JUSTO met bedside with pt and updated him on arrival of Oscar and Dtr Vijaya around 1400 with plan of discharge to [facility] for ongoing care and [facility] in the AM. Pt states he is looking forward to leaving the hospital and getting some fresh air on the way to [facility]. RN currently getting COVID swab. JUSTO called Leah back to confirm her review of pwk and that she received. Reviewing now. [facility] pharmacy filled pt's scripts with no expense and JUSTO provided meds in pt d/c packet to go with pt and Oscar and updated RN. Plan: Patient to d/c to [facility] today via friend POV at 1400 and [facility] to open at 0800 tomorrow. YUE Small
[2022-12-02 12:29] LABS: COVID19 -Nasal RAPID Negative (Negative)
== END 2022-12-02 15:45 | disposition hospice, home (50) | DRG 683 ==
LOC: ED 11-26 03:58 → AC 11-26 04:45
PROVIDERS: Emergency Medicine; Hospitalist; Internal Medicine; Neuromusculoskeletal Medicine, Sports Medicine; Student in an Organized Health Care Education/Training Program; Admitting Provider Internal Medicine; Emergency Provider Emergency Medicine; PCP Internal Medicine; Referring Provider Emergency Medicine; Visit Provider Internal Medicine
DX: N17.9 Acute kidney failure, unspecified (principal); C78.6 Secondary malignant neoplasm of retroperitoneum and peritoneum; C78.7 Secondary malignant neoplasm of liver and intrahepatic bile duct; J90 Pleural effusion, not elsewhere classified; F11.20 Opioid dependence, uncomplicated; I5A Non-ischemic myocardial injury (non-traumatic); I10 Essential (primary) hypertension; C80.1 Malignant (primary) neoplasm, unspecified; Z87.891 Personal history of nicotine dependence; Z66 Do not resuscitate
CPT/HCPCS: 36415; 70450; 71045; 71275; 74177; 80053; 82378; 82550; 82570; 83605; 83880; 84300; 84484; 85025; 85379; 85610; 86140; 86301; 87635; 93005; 96365; 97129; 97161; 97167; 97530; 99284; 99291; C9803; J0696; J1650; Q9967